=== PATIENT | female | born 1950 | race Caucasian/White ===

== ENCOUNTER → 2024-09-01 09:32 | Outpatient (REF) | payer MEDICARE, BC, SELFPAY | LOC: RAD 09:32 | PROVIDERS: ATTENDING PHYSICIAN Otolaryngology; FAMILY PHYSICIAN Nurse Practitioner | DX: R13.12 Dysphagia, oropharyngeal phase (principal) | CPT/HCPCS: 74221 ==

== ENCOUNTER 2024-09-24 06:10 | Day surgery (SDC) | payer MEDICARE, BC, SELFPAY ==
[2024-09-24 07:25] VITALS: BMI 26.0
[2024-09-24 07:30] VITALS: BP 144/81
[2024-09-24 07:35] VITALS: BMI 26.0
[2024-09-24 09:25] VITALS: BP 116/68
[2024-09-24 09:30] VITALS: BP 133/74
[2024-09-24 09:45] VITALS: BP 140/84
[2024-09-24 09:55] VITALS: BP 154/77
[2024-09-24 10:00] VITALS: BP 158/76
== END 2024-09-24 10:23 | disposition home or self-care (01) ==
LOC: SDS 06:10
PROVIDERS: ATTENDING PHYSICIAN Internal Medicine Gastroenterology
DX: R13.10 Dysphagia, unspecified (principal); K22.2 Esophageal obstruction; K29.70 Gastritis, unspecified, without bleeding; R93.3 Abnormal findings on diagnostic imaging of other parts of digestive tract; K22.89 Other specified disease of esophagus; Q39.4 Esophageal web
CPT/HCPCS: 43249; 43248; 88305; 88342; C1726

== ENCOUNTER 2024-12-23 18:03 | Inpatient (IN) | payer MEDICARE, BC, SELFPAY ==
[2024-12-23] VITALS (7 sets, daily range): BP systolic 128–184; BP diastolic 85–120; BMI 27.7; BMI 26.3
[2024-12-23] MEDS: DILAUDID 1 MG IV ×3 (15:27→23:09)
[2024-12-23 15:47] LABS: Hematocrit 39.6 % (37.0-47.0); Hemoglobin 13.0 g/dL (12.0-16.0); Mean Corp Hgb Conc. 32.8 g/dL (33.0-37.0); Mean Corpuscular Volume 99.5 fL (81.0-99.0); Nucleated Red Blood Cells % 0 %; Platelet Count 201 10^3/uL (130-400); Red Cell Dist. Width 20.2 % (11.5-14.5)
[2024-12-23 16:03] LABS: Blood Urea Nitrogen 13 mg/dl (7-17); Calcium 8.7 mg/dl (8.4-10.2); Carbon Dioxide 22 mmol/L (22-30); Chloride 115 mmol/L (98-107); Estimated Creatinine Clearance 75 ml/min; Glucose 104 mg/dl (70-99); Sodium 137 mmol/L (135-145); eGFR > 60.00
--- NOTE | 2024-12-23 16:08 | ED.GENMED ---
History of Present Illness
<Aung Pierce Jr., PA-C - Last Filed: 12/23/24 16:28>
General
Chief Complaint: Musculo-Skeletal Complaint
Source: patient
Exam Limitations: none
Time Seen by Provider: 12/23/24 15:16
Nursing documentation reviewed up to this point in time: agreed with
History of Present Illness
History of Present Illness:
74-year-old female presenting to the emergency department after mechanical fall hitting her left hip unable to walk since. Think she may have hit the left side of her head but denies any significant discomfort to her head or neck. She is not on
blood thinners. Received 100 mcg of fentanyl and route with some improvement of pain. Denies numbness weakness or additional concerns.
Review of Systems
<Aung Pierce Jr., PA-C - Last Filed: 12/23/24 16:28>
Review of Systems
Allergies reviewed?: Yes
All Other Systems: ROS reviewed and negative except as documented in HPI and ROS
Phy Exam
<LESLY Tai Jr. Last Filed: 12/23/24 16:28>
Physical Exam
Physical Exam:
GENERAL: Alert , in no apparent distress
EYE: pupils equal and reactive
NECK: Supple, no significant adenopathy.
ENT: o/p clr, mmm.
CARDIAC: Regular rate and rhythm .
LUNGS: Clear breath sounds bilaterally, no acute respiratory distress, no wheezes/rales/rhonchi
ABDOMEN: Soft, without focal tenderness, no r/g, no cvat
NEUROLOGICAL: Alert and oriented, no focal neuro deficits
SKIN: Warm and dry, skin intact.
MUSCULOSKELETAL: Shortened left leg discomfort to the left proximal hip region unable to move at the left hip secondary to pain otherwise normal right lower extremity examination and upper extremity examination
PSYCH: Normal and appropriate interaction.
Course
<Aung Pierce Jr., PA-C - Last Filed: 12/23/24 16:28>
Orders/Labs/Results
Orders:
Orders
12/23/24 15:20
CT Cervical Spine W/o Iv Contr Urgent
Comment:
Reason For Exam: fall
CT Head W/o Iv Contrast Urgent
Comment:
Reason For Exam: fall hit head
HYDROmorphone [Dilaudid] 1 mg IV NOW STA
Hip, Left 2-3 Views [CR Hip - LT w/wo Pel 2-3 Vw*] Urgent
Comment:
Reason For Exam: left hip pain after fall
Include a pelvis x-ray?: Yes
12/23/24 15:27
BMP [Basic Metabolic Panel] Urgent
CBC/With Diff [Complete Blood Count/With Diff] Urgent
Abnormal Lab Results
12/23/24
15:27
RBC 3.98 L 10^6/uL
(4.20-5.40)
MCV 99.5 H fL
(81.0-99.0)
MCH 32.7 H pg
(27.0-31.0)
MCHC 32.8 L g/dL
(33.0-37.0)
RDW 20.2 H %
(11.5-14.5)
Abs Immat Gran (auto) 0.1 H 10^3/uL
(0-0.05)
Immature Gran % 0.8 H %
(0-0.5)
Lymphocytes % 15.6 L %
(20.5-51.1)
Chloride 115 H mmol/L
(98-107)
Glucose 104 H mg/dl
(70-99)
12/23/24 15:27
12/23/24 15:27
Vital Signs
Initial and Last Documented VS:
Initial Vital Signs
Pulse Resp
94 20
12/23/24 15:08 12/23/24 15:08
Last Documented Vital Signs
Pulse Resp BP
94 16 152/94
12/23/24 15:16 12/23/24 15:16 12/23/24 15:16
<Jean-Pierre Barker Shanika, DO - Last Filed: 12/23/24 16:33>
Orders/Labs/Results
Orders:
Orders
12/23/24 15:20
CT Cervical Spine W/o Iv Contr Urgent
Comment:
Reason For Exam: fall
CT Head W/o Iv Contrast Urgent
Comment:
Reason For Exam: fall hit head
HYDROmorphone [Dilaudid] 1 mg IV NOW STA
Hip, Left 2-3 Views [CR Hip - LT w/wo Pel 2-3 Vw*] Urgent
Comment:
Reason For Exam: left hip pain after fall
Include a pelvis x-ray?: Yes
12/23/24 15:27
BMP [Basic Metabolic Panel] Urgent
CBC/With Diff [Complete Blood Count/With Diff] Urgent
Abnormal Lab Results
12/23/24
15:27
RBC 3.98 L 10^6/uL
(4.20-5.40)
MCV 99.5 H fL
(81.0-99.0)
MCH 32.7 H pg
(27.0-31.0)
MCHC 32.8 L g/dL
(33.0-37.0)
RDW 20.2 H %
(11.5-14.5)
Abs Immat Gran (auto) 0.1 H 10^3/uL
(0-0.05)
Immature Gran % 0.8 H %
(0-0.5)
Lymphocytes % 15.6 L %
(20.5-51.1)
Chloride 115 H mmol/L
(98-107)
Glucose 104 H mg/dl
(70-99)
12/23/24 15:27
12/23/24 15:27
Vital Signs
Initial and Last Documented VS:
Initial Vital Signs
Pulse Resp
94 20
12/23/24 15:08 12/23/24 15:08
Last Documented Vital Signs
Pulse Resp BP
94 16 152/94
12/23/24 15:16 12/23/24 15:16 12/23/24 15:16
<Aung Pierce Jr., PA-C - Last Filed: 12/23/24 16:28>
MDM/Problems Addressed
MDM/Problems Addressed:
74-year-old female presenting after mechanical fall with concerns of left-sided hip pain. Left leg is shortened and rotated. X-ray confirming femoral neck fracture. CT scan of the head and neck without emergent findings. Case discussed with
orthopedics and will be admitted for further treatment and monitoring.
<Aung Pierce Jr., PA-C - Last Filed: 12/23/24 16:28>
*Pulse Oximetry
Patient hypoxic: no (98)
*Critical Care Note
Total Time (30-74mins, 75-104mins- exclusive of procedures): Not Applicable
ED Attending Note
<Aung Pierce Jr., PA-C - Last Filed: 12/23/24 16:28>
-
Portions of this chart may have been created with voice recognition software.� Occasional wrong word or��sound alike� substitutions may have occurred due to the inherent limitations of voice recognition software.
<Jean-Pierre Voss DO - Last Filed: 12/23/24 16:33>
ED Attending Note
Patient seen and examined by attending physician: Yes
I performed the substantive portion of visit, reviewed & personally made and approve the management plan that is documented in note by myself or LIZETH.: Yes
ED Attending Note:
I evaluated the patient at 4:30 PM. The patient currently appears comfortable. CBC normal, chemistries unremarkable. I personally reviewed images and patient does have a left femoral neck fracture.
Discharge Plan
Departure
Patient Disposition: Admit
Date of Disposition: 12/23/24
Time of Disposition: 16:28
Admit to: Med/Surg
Admit to doctor: Pierre
Presentation/result/management discussed w/ accepting MD/DO: Hospitalist
Patient with high blood pressure during this ER visit?: No
Condition: Good
Covid-19: Not Applicable
Discharge Problem:
Closed fracture of left hip
Prescriptions:
No Action
losartan 25 mg Tablet
25 mg PO DAILY
diazepam 10 mg Tablet
10 mg PO BID
trazodone 100 mg Tablet
100 mg PO HS
atorvastatin 40 mg Tablet
40 mg PO DAILY
venlafaxine 150 mg Capsule,Extended Release 24hr
300 mg PO DAILY
omeprazole 40 mg Capsule,Delayed Release(Dr/Ec)
40 mg PO DAILY
Wellamoon patch
1 unit transdermal HS
Restful Legs Pm
1 tab PO PRN PRN (Reason: restless legs)
Referrals:
Diamond Pearl CRNP [Family Provider, General]
Interventions
Interventions:
*Risk Screen - Suicide Last Done: 12/23/24 15:12
*General Assessment Last Done: 12/23/24 15:12
*Neglect/Abuse Screening Last Done: 12/23/24 15:12
*ED COVID-19 Vaccine History Last Done: 12/23/24 15:12
ED-Musculoskeletal Assessment Last Done: 12/23/24 15:15
Discharge Date and Time
Print Language: COLOMBIAN
--- NOTE | 2024-12-23 16:48 | W.PN.UPDATE ---
Update Note
Progress Note Update
74-year-old female with two-vessel nonobstructive CAD, COPD/mild restrictive lung disease, thyroid nodule, oropharyngeal dysphagia, primary hypertension, dyslipidemia, family history of premature CAD possibly familial hypercholesterolemia, former
tobacco use, H/O skin cancer s/p resection presenting to the hospital today after a fall at home. Patient notes mechanical fall without preceding symptoms such as chest pain, dyspnea, lightheadedness or palpitations. States she believes she hit
the left side of her head but denies any discomfort. Denies anticoagulants. Denies paresthesias, aphasia, weakness. AFVSS through ED course. Labs unremarkable. Head CT without acute findings including ICH or midline shift. CT cervical spine
without contrast showed mild centrilobular emphysema bilaterally though no acute cervical findings. X-ray of the left hip showed acute fracture of the subcapital femoral neck with mild displacement. Was given 1 mg of Dilaudid in the ED.
AO x 4, NAD. Well-nourished. Benign cardiopulmonary and abdomen. LLE with mild external rotation, tenderness to proximal palpation. Neurovascularly intact. No edema, palpable pulses. No focal deficits, no tremor.
#Acute left subcapital femoral fracture with mild displacement. Orthopedics alerted in the ED and planning for OR tomorrow. Continue with as needed analgesia. Nonweightbearing pending the OR. N.p.o. at midnight for OR tomorrow
#Two-vessel CAD. No history of intervention such as PCI or CABG. Noted family history as well, possibly familial hypercholesteremia. Currently on high intensity statin, no aspirin per our records. Would likely need full dose aspirin for DVT
prophylaxis following surgery, may benefit from de-escalation 81 mg thereafter due to ASCVD history.
#Oropharyngeal dysphagia. Etiology unclear, following OP with gastroenterology. Currently on omeprazole 40 mg daily. Will continue PPI while here. Start aspiration precautions.
#Preoperative assessment. Patient is low risk for a low to moderate risk procedure. RCRI roughly 0.9%. No contraindications to surgical intervention from this perspective
Diet -- Low cholesterol, n.p.o. at midnight
DVT prophylaxis -- SCDs today, SQ Lovenox tomorrow after OR
CODE STATUS -- Full
I will be admitting Jena Cervantes to [facility]. She is at high risk for worsening morbidity and mortality due to acute hip fracture requiring intensive monitoring of blood counts and surgical intervention by orthopedics. I have discussed this case
with the ED attending and orthopedist. I reviewed the case with the resident and agree with documentation unless otherwise specified.
--- NOTE | 2024-12-23 17:38 | HPS.HSE ---
Family Physician
-
Family Physician: Diamond Peral
Chief Complaint
-
Left hip trauma following fall
History of Present Illness
74-year-old female with past medical history of hypertension, hyperlipidemia, anxiety, depression, history of alcohol abuse sober for 3 years came to the ED following a fall while she was trying to hug somebody while at an AA meeting. Patient
describes that she was leaning over and then suddenly fell in slow motion and hit her head. She does not remember passing out or feeling any dizziness or weakness and remembers everything that happened during and prior to the fall. She says that
she was feeling a lot of pain following the fall and stated called EMS due to the increased amount of pain. In the ED she was found to have a left femoral neck fracture with mild displacement and is planned for orthopedic surgery in the morning.
She has a history of anxiety and depression for which she takes venlafaxine in the morning and diazepam 10 mg, maximum of twice a day. She says she has not had any alcohol in 3 years and has been sober since then. Lives alone in her apartment
building, but both her daughters close by. She lives on the second floor apartment by herself following her passing away few years ago. She says that she had smoked tobacco for 10 years but stopped when she was 29 years old. Currently has
no other issues except for difficulty with eating. She has been following up with GI who started her on omeprazole 40 mg. She describes that she can eat solid foods like cheeseburgers but has to be very particular about what she eats. Overall she
has been feeling well but was told by orthopedics that she might need bilateral knee replacement which she has hold off on doing. Does not endorse any shortness of breath, chest pain, headaches, difficulty breathing at this time.
Medical History
Past Medical History
Past Medical History: Reports HTN, Hypercholesterolemia and Other (Alcohol use disorder)
Past Surgical History: Reports Cholecystectomy, Gynocological (Hysterectomy, x 4), Orthopedic (Right shoulder replacement) and Other (lumpectomy/skin cancer)
Social History
Tobacco: Former Smoker (Stopped smoking when she was 29)
Alcohol: Former (Sober for 3 years)
Drug: None
Personal:
Living: Alone
Employment: Retired
Family History
Family History: Not pertinent
Allergies / Home Medications
Allergies reflects when Allergies were last updated in [facility].
Home Medications with original date entered in [facility]
Allergy/Medication List:
Allergies
Allergy/AdvReac Type Severity Reaction Status Date / Time
prednisone Allergy Unknown Verified 12/23/24 15:19
Home Medications
diazepam 10 mg tablet 10 mg PO BID 09/24/24
losartan 25 mg tablet 25 mg PO DAILY 09/24/24
trazodone 100 mg tablet 100 mg PO HS 09/24/24
Restful Legs Pm 1 tab PO PRN PRN restless legs 10/13/24
Wellamoon 1 unit transdermal HS 10/13/24
atorvastatin 40 mg tablet 40 mg PO DAILY 10/13/24
omeprazole 40 mg capsule,delayed release 40 mg PO DAILY 10/13/24
venlafaxine 150 mg capsule,extended release 24 hr 300 mg PO DAILY 10/13/24
Review of Systems
-
History Source: Patient
A 12 point ROS was completed and negative except as noted: Yes
Constitutional: Reports No Symptoms
EENT: Reports No Symptoms
Respiratory: Reports No Symptoms
Cardiac: Reports No Symptoms
Abdomen/GI: Reports No Symptoms
: Reports No Symptoms
Musculoskeletal: Reports See HPI
Skin: Reports No Symptoms
Neurological: Reports No Symptoms
Endocrine: Reports No Symptoms
Hematologic/Lymphatic: Reports No Symptoms
Psych: Reports Calm
Physical Exam
Vital Signs
Vital Signs
Temp Pulse Resp BP Pulse Ox
98.2 F 97 18 176/97 95
12/23/24 16:39 12/23/24 17:15 12/23/24 17:15 12/23/24 17:00 12/23/24 17:15
Physical Exam
General: Well Developed, Well Nourished, No Apparent Distress, Comfortable and Conversant
HEENT: NormoCephalic, Anicteric, Moist mucous membranes and Atraumatic
Respiratory: Clear and Non Labored Respirations
Cardiac: S1/S2 and Regular Rhythm
GI: Soft, Non Tender, Non Distended and Normal Bowel Sounds
Musculoskeletal: No Clubbing, No Cyanosis, No Edema and Other (Left lower extremity sensation, pedal pulses intact, motor function reduced due to pain)
Skin: Warm and Dry
Neuro: Awake, Alert, Oriented and AO x 3
Psych: Calm
Laboratory Results
-
12/23/24 15:27
12/23/24 15:27
Data Reviewed
-
Diagnostic Radiology: Report Reviewed by me, Discussed with Physician and Discussed with Patient
CT Scan: Report Reviewed by me, Discussed with Physician and Discussed with Patient
Lab Data: Labs Reviewed by me, Discussed with Physician and Discussed with Patient
Impression/Plan
-
Assessment:
74-year-old female with past medical history of hypertension, hyperlipidemia, anxiety, depression, history of alcohol abuse sober for 3 years came to the ED following a fall while she was trying to hug somebody while at an AA meeting. Patient
describes that she was leaning over and then suddenly fell in slow motion and hit her head. She does not remember passing out or feeling any dizziness or weakness in remembers everything that happened during and prior to the fall. She says that
she was feeling a lot of pain following the fall and stated called EMS due to the increased amount of pain. In the ED she was found to have a left femoral neck fracture with mild displacement and is planned for orthopedic surgery in the morning.
Plan:
# Left femoral neck acute fracture with mild displacement
- Fell on her head as well, however head CT negative for any acute finding
- Seen on hip x-ray, Ortho following, input appreciated
- N.p.o. after midnight, surgery planned for tomorrow
- Pain control with IV Dilaudid as needed
# Hypertension
- Already took her losartan dose this morning, will continue losartan starting tomorrow
# Hyperlipidemia
- Will continue atorvastatin tomorrow, already took a dose today
# Anxiety/depression
- Taking diazepam 10 mg twice daily as needed at home
- Will continue with current dosing
- Continue venlafaxine 300 mg p.o. daily, two 150 mg tablets in the morning
# History of dysphagia
- Able to eat regular foods at home, but very careful about what she eats
- Following GI in outpatient setting and had recent endoscopy, will continue with pantoprazole
- Will continue regular foods with aspiration precautions
- N.p.o. after midnight
Full code
DVT prophylaxis: SCDs
[2024-12-23] MEDS: DILAUDID 0.5 MG IV (20:53)
--- NOTE | 2024-12-23 21:20 | PTCARENOTE ---
pt rec'd via stretcher @ 2119; w/ left hip fx; AOx3; hypertensive f/u w [employer]; bed locked in lowest position; call dee within reach; care ongoing;
[2024-12-23] MEDS: DESYREL 100 MG PO (22:51)
[2024-12-23] MEDS: VALIUM 10 MG PO (22:51)
[2024-12-24] VITALS (12 sets, daily range): BP systolic 110–175; BP diastolic 46–98
[2024-12-24] MEDS: DILAUDID 0.5 MG IV (00:09)
[2024-12-24] MEDS: DILAUDID 1 MG IV ×3 (04:03→09:17)
--- NOTE | 2024-12-24 06:22 | W.PN.UPDATE ---
Update Note
Progress Note Update
Left hip displaced femoral neck fracture for hemiarthroplasty today with Dr Mendiola. NPO, ancef, ABX/TXA irrigation and type & screen ordered. Full orthopedic consult dictataed.
[2024-12-24 06:43] LABS: Hematocrit 36.9 % (37.0-47.0); Hemoglobin 12.2 g/dL (12.0-16.0); Mean Corp Hgb Conc. 33.1 g/dL (33.0-37.0); Mean Corpuscular Volume 101.7 fL (81.0-99.0); Platelet Count 184 10^3/uL (130-400); Red Cell Dist. Width 20.2 % (11.5-14.5)
[2024-12-24 07:08] LABS: ALT (SGPT) 15 U/L (0-35); AST (SGOT) 25 U/L (14-36); Albumin 3.2 g/dl (3.5-5.0); Alkaline Phosphatase 124 U/L (38-126); Blood Urea Nitrogen 12 mg/dl (7-17); Calcium 8.0 mg/dl (8.4-10.2); Carbon Dioxide 28 mmol/L (22-30); Chloride 112 mmol/L (98-107); Estimated Creatinine Clearance 66 ml/min; Glucose 106 mg/dl (70-99); Potassium 3.3 mmol/L (3.5-5.1); Sodium 136 mmol/L (135-145); Total Protein 5.7 g/dl (6.3-8.2); eGFR > 60.00
--- NOTE | 2024-12-24 08:03 | W.PN.HOSP.TC ---
Today's Communication/Plan
-
N.p.o. until OR with Dr. Mendiola today
Continue managing pain levels
Assessment / Plan
Assessment / Plan
Assessment:
74-year-old female with past medical history of hypertension, hyperlipidemia, anxiety, depression, history of alcohol abuse sober for 3 years came to the ED following a fall while she was trying to hug somebody while at an AA meeting. Patient
describes that she was leaning over and then suddenly fell in slow motion and hit her head. She does not remember passing out or feeling any dizziness or weakness in remembers everything that happened during and prior to the fall. She says that
she was feeling a lot of pain following the fall and stated called EMS due to the increased amount of pain. In the ED she was found to have a left femoral neck fracture with mild displacement and is planned for orthopedic surgery later today.
Plan:
# Left femoral neck acute fracture with mild displacement
- Fell on her head as well, however head CT negative for any acute finding
- Seen on hip x-ray
- Ortho consulted, input appreciated
- N.p.o., hemiarthroplasty of left hip with Dr. Mendiola today
- Pain control with IV Dilaudid as needed
# Hypertension
- Continue home dose of losartan
# Hyperlipidemia
- Continue atorvastatin
# Anxiety/depression
- Taking diazepam 10 mg twice daily as needed at home
- Will continue with current dosing
- Continue venlafaxine 300 mg p.o. daily, two 150 mg tablets in the morning
# History of dysphagia
- Able to eat regular foods at home, but very careful about what she eats
- Following GI in outpatient setting and had recent endoscopy, will continue with pantoprazole
- Will continue regular foods with aspiration precautions
- Has been n.p.o. after midnight
Full code
DVT prophylaxis: SCDs, will switch to Lovenox following surgery
Anticipated Discharge: 24 - 48 hours
Subjective/Interval History
-
Date of Service: December 24, 2024
Patient seen this morning, had just received her pain meds but was still in some pain, waiting on the pain meds to kick in. Was a bit frustrated after being told that she might need to go to [facility] for rehab following her
surgery. Reassured her that it was just one step at the road to recovery following surgery. Does not report any shortness of breath, chest pain, headaches at this time.
Objective Data
-
Labs:
Laboratory Results
12/24/24
06:11
WBC 6.9
Hgb 12.2
Hct 36.9 L
Plt Count 184
Sodium 136
Potassium 3.3 L
Chloride 112 H
Carbon Dioxide 28
BUN 12
Creatinine 0.6
Glucose 106 H
Calcium 8.0 L
Total Bilirubin 0.7
AST 25
ALT 15
Alkaline Phosphatase 124
Vital Signs:
Vital Signs
Temp Pulse Resp BP Pulse Ox
98.5 F 102 18 155/97 95
12/23/24 21:15 12/24/24 00:04 12/23/24 21:15 12/24/24 00:04 12/23/24 21:15
Review of Systems
-
History Source: Patient
Constitutional: Reports No Symptoms
EENT: Reports No Symptoms Reported
Respiratory: Reports No Symptoms
Cardiac: Reports No Symptoms
Abdomen/GI: Reports No Symptoms
Genitourinary: Reports No Symptoms
Musculoskeletal: Reports Joint Pain (Left hip pain)
Skin: Reports No Symptoms
Neuro: Reports No Symptoms
Endocrine: Reports No Symptoms
Hematologic / Lymphatic: Reports No Symptoms
Allergy / Immunology: Reports No Symptoms
Psych: Reports Anxious
Physical Exam
-
General: Well Developed, Well Nourished, Pain and Conversant
HEENT: Normocephalic, Atraumatic and Moist Mucous Membranes
Respiratory: Clear to Auscultation and Non Labored Respirations; Negative Wheezes or Crackles
Cardiac: Regular Rhythm and S1/S2; Negative Murmur, Rub or Gallop
GI: Soft, Nontender, Nondistended and Normal Bowel Sounds
Genito-urinary: No Costovertebral Tender
Musculoskeletal: No Clubbing, No Cyanosis, No Edema and Other (LLE with mild external rotation, tenderness to proximal palpation)
Skin: Warm and Dry
Neuro: Awake, Alert, Oriented and AO x 3
Psych: Agitated
Data Reviewed
-
Labs: Labs Reviewed by me, Discussed with Physician and Discussed with Patient
[2024-12-24] MEDS: COZAAR 25 MG PO (08:16)
[2024-12-24] MEDS: PROTONIX 40 MG PO (08:16)
[2024-12-24] MEDS: EFFEXOR XR PO (08:21)
[2024-12-24] MEDS: LIPITOR PO (08:21)
[2024-12-24] MEDS: VALIUM 10 MG PO (08:24)
[2024-12-24] MEDS: FLUSH (NSS) 2 FLUSH IV (09:17)
--- NOTE | 2024-12-24 09:54 | CM ---
CM following re: discharge planning.
Reviewed pt's chart, met with pt.
Pt is a 74 year old female, admitted with primary dx of Left hip displaced femoral neck fracture. OR for hemiarthroplasty today.
Pt reports she lives alone in an apartment, 2 steps to enter, has 4 supportive daughters. 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 Pt stated she is aware of surgery today and pt stated she will need to go t0o a
SNF. Pt preferred following SNFs: [facility], [facility], [facility], [facility].
A referral to above SNFs made. CM will fax updated clinical tomorrow to preferred SNF with PT/OT evaluations.
PCP: Diamond dougherty
Pharmacy: [facility].
D/c plan: preferred SNF.
CM will follow to assist pt with discharge to a preferred SNF.
[2024-12-24] MEDS: KCL ELIXIR 40 MEQ PO (10:01)
[2024-12-24] MEDS: ROXICODONE 5 MG PO (16:12)
[2024-12-24] MEDS: ASPIRIN 325 MG PO (17:44)
[2024-12-24] MEDS: COLACE 100 MG PO (20:06)
[2024-12-24] MEDS: BACTROBAN 2% OINTMENT 1 APPLIC NASAL (20:06)
[2024-12-24] MEDS: SENOKOT 17.2 MG PO (20:06)
[2024-12-24] MEDS: ROXICODONE 10 MG PO (20:06)
[2024-12-24] MEDS: DESYREL 150 MG PO (22:17)
[2024-12-24] MEDS: ANCEF 5 IV (22:17)
[2024-12-24] MEDS: MELATONIN 5 MG PO (22:18)
[2024-12-25] MEDS: VALIUM 10 MG PO ×2 (00:56→08:31)
[2024-12-25] MEDS: TYLENOL 650 MG PO ×3 (00:56→17:38)
[2024-12-25 03:20] VITALS: BP 129/72
[2024-12-25] MEDS: ANCEF 5 IV (06:11)
[2024-12-25 06:34] LABS: Hematocrit 31.3 % (37.0-47.0); Hemoglobin 10.2 g/dL (12.0-16.0); Mean Corp Hgb Conc. 32.6 g/dL (33.0-37.0); Mean Corpuscular Volume 102.6 fL (81.0-99.0); Nucleated Red Blood Cells % 0 %; Platelet Count 163 10^3/uL (130-400); Red Cell Dist. Width 20.6 % (11.5-14.5)
--- NOTE | 2024-12-25 06:35 | PTCARENOTE ---
Tried to reinforce DVT prevention. However, pt continues to remove venous foot pumps.
--- NOTE | 2024-12-25 07:19 | W.PN.ORTHO ---
Today's Communication / Plan
-
Evaluate and discharge planning
Assessment
.
Distal Motor Intact: Yes
Dressing:
Clean, dry and intact.
Assessment:
Doing well postop. Postop xray as expected.
Plan
.
Surgery / Date: 12/24/24 L hip hemiarthroplasty
DVT Prophylaxis: Aspirin
Activity:
Out of bed.
PT/OT
Discharge Plan: Rehab
Discharge Information:
Patient to receive PT.
Case Management consult for inpatient rehab
Subjective
.
.:
Patient resting comfortably.
Slightly confused about date.
Pain much improved
Vital Signs and Labs
.
Vital Signs and Labs:
Lab Results
12/25/24 05:24
Temp Pulse Resp BP Pulse Ox
97.6 F 108 18 129/72 94
12/25/24 03:20 12/25/24 03:20 12/25/24 03:20 12/25/24 03:20 12/25/24 03:20
Physical Exam
-
Pulm: nonlabored
CV: regular
LLE: Dressing CDI. Calf soft. NVI distally
[2024-12-25 07:20] VITALS: BP 158/66
[2024-12-25 07:43] LABS: ALT (SGPT) 12 U/L (0-35); AST (SGOT) 29 U/L (14-36); Albumin 2.7 g/dl (3.5-5.0); Alkaline Phosphatase 102 U/L (38-126); Blood Urea Nitrogen 10 mg/dl (7-17); Calcium 7.6 mg/dl (8.4-10.2); Carbon Dioxide 28 mmol/L (22-30); Chloride 111 mmol/L (98-107); Estimated Creatinine Clearance 66 ml/min; Glucose 108 mg/dl (70-99); Potassium 3.9 mmol/L (3.5-5.1); Sodium 135 mmol/L (135-145); Total Protein 4.8 g/dl (6.3-8.2); eGFR > 60.00
--- NOTE | 2024-12-25 07:43 | W.PN.HOSP.TC ---
Addendum entered and electronically signed by No Parish MD, Resident 12/26/24 06:53:
CDI: Postop confusion only
Addendum entered and electronically signed by No Parish MD, Resident 12/25/24 14:39:
CDI: Multifactorial due to low level mechanical fall and possible age-related osteoporosis
Original Note:
Today's Communication/Plan
-
PT evaluation
Continue pain medications as needed
Monitor for continued improvement in mental status
Resume home meds
Assessment / Plan
Assessment / Plan
Assessment:
74-year-old female with past medical history of hypertension, hyperlipidemia, anxiety, depression, history of alcohol abuse sober for 3 years came to the ED following a fall while she was trying to hug somebody while at an AA meeting. Patient
describes that she was leaning over and then suddenly fell in slow motion and hit her head. She does not remember passing out or feeling any dizziness or weakness in remembers everything that happened during and prior to the fall. She says that
she was feeling a lot of pain following the fall and stated called EMS due to the increased amount of pain. In the ED she was found to have a left femoral neck fracture with mild displacement and underwent left hip hemiarthroplasty. Currently
postop day 1.
Plan:
# Left femoral neck acute fracture with mild displacement
- Fell on her head as well, however head CT negative for any acute finding
- Seen on hip x-ray
- Ortho consulted, input appreciated
- Postop day 1 following left hip hemiarthroplasty
- Pain control with oxycodone as needed
- Postop x-ray was as expected, patient to receive physical therapy today, most likely discharge to SNF for rehab
# Postop confusion
- Mildly confused following operation and taking oxycodone
- Recovering mental status, will continue to monitor for any worsening
# Hypertension
- Continue home dose of losartan
# Hyperlipidemia
- Continue atorvastatin
# Anxiety/depression
- Taking diazepam 10 mg twice daily as needed at home
- Will continue with current dosing
- Continue venlafaxine 300 mg p.o. daily, two 150 mg tablets in the morning
# History of dysphagia
- Able to eat regular foods at home, but very careful about what she eats
- Following GI in outpatient setting and had recent endoscopy, will continue with pantoprazole
- Will continue regular foods with aspiration precautions
Full code
DVT prophylaxis: Lovenox tonight
Anticipated Discharge: Within 24 hours
Subjective/Interval History
-
Date of Service: December 25, 2024
Patient seen this morning was a little bit confused following taking oxycodone. Nurse said that she has been taking off her SCDs for confusion. Patient says that she has not really been eating since the surgery, but says that she is usually not
very big eater but will try to eat today. Does not report any nausea, vomiting, does not have any shortness of breath or difficulty breathing at this time. Has not had a bowel movement since the surgery yet. Has the pain is a lot better than
before however still having some pain.
Objective Data
-
Labs:
Laboratory Results
12/25/24
05:24
WBC 8.7
Hgb 10.2 L
Hct 31.3 L
Plt Count 163
Sodium Pending
Potassium Pending
Chloride Pending
Carbon Dioxide Pending
BUN Pending
Creatinine Pending
Glucose Pending
Calcium Pending
Total Bilirubin Pending
AST Pending
ALT Pending
Alkaline Phosphatase Pending
Vital Signs:
Vital Signs
Temp Pulse Resp BP Pulse Ox
97.6 F 108 18 129/72 94
12/25/24 03:20 12/25/24 03:20 12/25/24 03:20 12/25/24 03:20 09/19/25 03:20
I&O
12/24/24 12/25/24 12/26/24
06:59 06:59 06:59
Intake Total 200 / 200
Output Total 150 / 150
Balance 50 / 50
Review of Systems
-
History Source: Patient
Constitutional: Reports No Symptoms
EENT: Reports No Symptoms Reported
Respiratory: Reports No Symptoms
Cardiac: Reports No Symptoms
Abdomen/GI: Reports Bloated
Genitourinary: Reports No Symptoms
Musculoskeletal: Reports Joint Pain (Left hip pain, tenderness around area of incision)
Skin: Reports No Symptoms
Neuro: Reports No Symptoms
Endocrine: Reports No Symptoms
Hematologic / Lymphatic: Reports No Symptoms
Allergy / Immunology: Reports No Symptoms
Psych: Reports Anxious and Other (Mild confusion)
Physical Exam
-
General: Well Developed, Well Nourished, Pain and Conversant
HEENT: Normocephalic, Atraumatic and Moist Mucous Membranes
Respiratory: Clear to Auscultation and Non Labored Respirations; Negative Wheezes or Crackles
Cardiac: Regular Rhythm and S1/S2; Negative Murmur, Rub or Gallop
GI: Soft, Nontender, Normal Bowel Sounds and Distended (Mildly distended)
Genito-urinary: No Costovertebral Tender
Musculoskeletal: No Clubbing, No Cyanosis, No Edema and Other (Incisions noted around left hip, area tender to the touch. Incision site nonerythematous and nondraining. Pedal pulses palpated equally both lower extremities)
Skin: Warm and Dry
Neuro: Awake, Alert, Oriented and AO x 3
Psych: Confused (Mild confusion) and Agitated
Data Reviewed
-
Diagnostic Radiology: Report Reviewed by me, Discussed with Physician and Discussed with Patient
Labs: Labs Reviewed by me, Discussed with Physician, Discussed with Nurse and Discussed with Patient
[2024-12-25] MEDS: EFFEXOR XR 300 MG PO (08:28)
[2024-12-25] MEDS: ASPIRIN 325 MG PO (08:28)
[2024-12-25] MEDS: PROTONIX 40 MG PO (08:28)
[2024-12-25] MEDS: BACTROBAN 2% OINTMENT 1 APPLIC NASAL ×2 (08:28→21:00)
[2024-12-25] MEDS: LIPITOR 40 MG PO (08:28)
[2024-12-25] MEDS: COLACE 100 MG PO ×2 (08:28→21:25)
[2024-12-25] MEDS: ROXICODONE 5 MG PO ×4 (08:33→21:24)
[2024-12-25] MEDS: SENOKOT PO (08:36)
[2024-12-25] MEDS: COZAAR 25 MG PO (08:40)
--- NOTE | 2024-12-25 08:56 | W.PN.ORTHO ---
Today's Communication / Plan
-
Appreciate the primary team, continue treatment
Dispo likely SNF, appreciate CM
Continue WBAT B/L LEs on walker
PT/OT, THPs x 6 weeks
ASA + Lovenox for DVT ppx, or per primary
Dressing to remain 7-10 days
Pain control, ice to the hip as needed
[place] out 2 weeks (SNF or office)
If oksana removed at SNF outpatient Ortho follow-up in 4 weeks
Will follow
Assessment
.
Distal Motor Intact: Yes
Dressing:
Clean, dry and intact. Primaseal intact left hip
Assessment:
POD#1 Left hip Bienvenido
Overall doing/feeling well
Calf soft, nontender
Plan
.
Surgery / Date: Left hip Bienvenido/Dec 31 ([facility])
DVT Prophylaxis: Aspirin and Lovenox (per primary)
Activity:
Out of bed. WBAT LLE on walker
PT/OT, THPs x 6 weeks
Discharge Plan: SNF (Appreciate CM) and Other
Subjective
.
.:
Patient resting comfortably. No significant pain left hip
Vital Signs and Labs
.
Vital Signs and Labs:
Lab Results
12/25/24 05:24
12/25/24 05:24
Temp Pulse Resp BP Pulse Ox
97.6 F 97 18 158/66 94
12/25/24 03:20 12/25/24 08:40 12/25/24 03:20 12/25/24 08:40 12/25/24 03:20
[2024-12-25 11:04] VITALS: BP 154/71; PULSE 102; O2SAT 93
[2024-12-25 11:15] VITALS: BP 110/80
--- NOTE | 2024-12-25 13:39 | CM ---
CM following re: discharge planning.
Reviewed pt's chart, met with pt, spoke to daughter Es and met with daughter Anya.
Pt is POD#1 Left hip Bienvenido, Overall doing/feeling well, continue supportive care. Per MD pt most klikely will be ready for discharge tomorrow. Both pt and her daughter are aware, expressed their agreement. IMM reviewed, placed on chart, pt has a
copy.
Both pt and her daughter were informed that [facility] and [facility] offered a bed and they offered a private room. After discussion with pt and her family, they decided [facility]
CM spoke to [facility] cardiac rehabilitation program director and she confirmed that pt is accepted for admission tomorrow. Weekend CM to call [facility] and ask for nursing toilet and laundry soap supervisor regarding pt's discharge.
UC to arrange ambulance transport when confirmed that pt is discharged. PMNC completed and left with UC.
[facility] nursing report: [phone]
Discharge instructions fax: [phone]
D/C plan: [facility] tomorrow Saturday12/26/24
--- NOTE | 2024-12-25 13:51 | PN.CDI ---
CDI
- -
CDI:
Physician Documentation Request
Admit Date: 12/23/24 18:03
Dear Doctor Марина,
Patient admitted with acute left subcapital femoral fracture s/p left hip hemiarthroplasty.
12/25 PN, '....came to the ED following a fall while she was trying to hug somebody while at an AA meeting.'
Please provide in your note the likely etiology/etiologies of the documented left femoral fracture:
Multifactorial due to low level mechanical fall and age-related osteoporosis
Low level mechanical fall only
Other
Use of terms such as suspected, likely, concern for, or probable (associated with a specific diagnosis that is being evaluated, monitored, or treated as if it exists) are acceptable and can be coded in the inpatient setting, when documented at the
time of discharge.
Thank you,
Shyann VALDEZ,RN,CCDS
CDI Specialist
Available via [place] text
Please use your independent medical judgment in providing your response.
--- NOTE | 2024-12-25 14:40 | PN.CDI ---
CDI
- -
CDI:
Physician Documentation Request
Admit Date: 12/23/24 18:03
Dear Doctor Марина,
Patient admitted with acute left subcapital femoral fracture s/p left hip hemiarthroplasty.
12/25 PN, 'Postop confusion- Mildly confused following operation and taking oxycodone- Recovering mental status...'
Based on the above, please clarify in the note the most likely etiology of the postop confusion :
Toxic metabolic encephalopathy
Post op confusion only
Other
Use of terms such as suspected, likely, concern for, or probable (associated with a specific diagnosis that is being evaluated, monitored, or treated as if it exists) are acceptable and can be coded in the inpatient setting, when documented at the
time of discharge.
Thank you,
Shyann VALDEZ,RN,CCDS
CDI Specialist
Available via [place] text
Please use your independent medical judgment in providing your response.
[2024-12-25 15:15] VITALS: BP 113/64
[2024-12-25] MEDS: ZOFRAN 4 MG IV (17:43)
[2024-12-25] MEDS: DESYREL 150 MG PO (21:24)
[2024-12-25] MEDS: MELATONIN 5 MG PO (21:24)
[2024-12-25 23:41] VITALS: BP 124/83
[2024-12-25] MEDS: TYLENOL PO (23:57)
[2024-12-26] MEDS: ROXICODONE 5 MG PO ×2 (05:31→16:27)
[2024-12-26] MEDS: TYLENOL 650 MG PO ×2 (05:31→11:59)
[2024-12-26 06:36] LABS: Hematocrit 29.6 % (37.0-47.0); Hemoglobin 9.3 g/dL (12.0-16.0); Mean Corp Hgb Conc. 31.4 g/dL (33.0-37.0); Mean Corpuscular Volume 103.1 fL (81.0-99.0); Platelet Count 174 10^3/uL (130-400); Red Cell Dist. Width 20.6 % (11.5-14.5)
[2024-12-26 06:58] LABS: Blood Urea Nitrogen 15 mg/dl (7-17); Calcium 8.1 mg/dl (8.4-10.2); Carbon Dioxide 30 mmol/L (22-30); Chloride 108 mmol/L (98-107); Estimated Creatinine Clearance 66 ml/min; Glucose 121 mg/dl (70-99); Potassium 3.8 mmol/L (3.5-5.1); Sodium 134 mmol/L (135-145); eGFR > 60.00
[2024-12-26 07:40] VITALS: BP 132/71
[2024-12-26] MEDS: COZAAR 25 MG PO (08:01)
[2024-12-26] MEDS: PROTONIX 40 MG PO (08:03)
[2024-12-26] MEDS: EFFEXOR XR 300 MG PO (08:03)
[2024-12-26] MEDS: COLACE 100 MG PO (08:04)
[2024-12-26] MEDS: LIPITOR 40 MG PO (08:04)
[2024-12-26] MEDS: ASPIRIN 325 MG PO (08:04)
--- NOTE | 2024-12-26 09:45 | W.PN.ORTHO ---
Today's Communication / Plan
-
74-year-old female postoperative day 2 left hip hemiarthroplasty with Dr. Penn
Appreciate the primary team, continue treatment
Dispo likely SNF, appreciate CM
Continue WBAT B/L LEs on walker
PT/OT, THPs (anterior approach) x 6 weeks
ASA + Lovenox for DVT ppx, or per primary
Dressing to remain 7-10 days
Pain control, ice to the hip as needed
[place] out 2 weeks (SNF or office); DC info UTD
If oksana removed at [facility] outpatient Ortho follow-up in 4 weeks
Orthopedic surgery will follow peripherally at this time; please reengage if further questions concerns
Assessment
.
Distal Motor Intact: Yes
Dressing:
Clean, dry and intact.
Plan
.
Surgery / Date: Left hip Bienvenido/Dec 31 ([facility])
Activity:
Out of bed.
PT/OT
Subjective
.
.:
Patient resting comfortably.
Vital Signs and Labs
.
Vital Signs and Labs:
Lab Results
12/26/24 06:12
12/26/24 06:12
Temp Pulse Resp BP Pulse Ox
98.9 F 122 18 132/71 98
12/26/24 07:40 12/26/24 08:01 12/26/24 07:40 12/26/24 08:01 12/26/24 07:40
--- NOTE | 2024-12-26 09:49 | W.PN.HOSP.TC ---
Today's Communication/Plan
-
Discharge to SNF today
Assessment / Plan
Assessment / Plan
Assessment:
74-year-old female with past medical history of hypertension, hyperlipidemia, anxiety, depression, history of alcohol abuse sober for 3 years came to the ED following a fall while she was trying to hug somebody while at an AA meeting. Patient
describes that she was leaning over and then suddenly fell in slow motion and hit her head. She does not remember passing out or feeling any dizziness or weakness in remembers everything that happened during and prior to the fall. She says that
she was feeling a lot of pain following the fall and stated called EMS due to the increased amount of pain. In the ED she was found to have a left femoral neck fracture with mild displacement and underwent left hip hemiarthroplasty. Currently
postop day 2.
Plan:
# Left femoral neck acute fracture with mild displacement
- Fell on her head as well, however head CT negative for any acute finding
- Seen on hip x-ray
- Ortho consulted, input appreciated
- Postop day 2 following left hip hemiarthroplasty
- Pain control with oxycodone and Tylenol as needed
- As per discussion with patient and her family, patient to go to rehab today at SNF
# Postop confusion only
- Mildly confused following operation and taking oxycodone 10 mg
- No further instances of confusion, resolved
# Hypertension
- Continue home dose of losartan
# Hyperlipidemia
- Continue atorvastatin
# Anxiety/depression
- Taking diazepam 10 mg twice daily as needed at home
- Will continue with current dosing
- Continue venlafaxine 300 mg p.o. daily, two 150 mg tablets in the morning
# History of dysphagia
- Able to eat regular foods at home, but very careful about what she eats
- Following GI in outpatient setting and had recent endoscopy, will continue with pantoprazole
- Will continue regular foods with aspiration precautions
Full code
DVT prophylaxis: Aspirin and SCDs
Anticipated Discharge: Today
Subjective/Interval History
-
Date of Service: December 26, 2024
Patient is feeling much better following surgery, reports that her pain levels are much improved. Does not report any further change in mental status that she had yesterday. Discussed with her family yesterday and is willing to go to SNF later
today for rehabilitation. She does say that she is feeling a little bit anxious about going to a new place.
Objective Data
-
Labs:
Laboratory Results
12/26/24
06:12
WBC 10.3
Hgb 9.3 L
Hct 29.6 L
Plt Count 174
Sodium 134 L
Potassium 3.8
Chloride 108 H
Carbon Dioxide 30
BUN 15
Creatinine 0.6
Glucose 121 H
Calcium 8.1 L
Vital Signs:
Vital Signs
Temp Pulse Resp BP Pulse Ox
98.9 F 122 18 132/71 98
12/26/24 07:40 12/26/24 08:01 12/26/24 07:40 12/26/24 08:01 12/26/24 07:40
I&O
12/25/24 12/26/24 12/27/24
06:59 06:59 06:59
Intake Total 200 / 200 357 / 357
Output Total 150 / 150 200 / 200
Balance 50 / 50 157 / 157
Review of Systems
-
History Source: Patient
Constitutional: Reports No Symptoms
EENT: Reports No Symptoms Reported
Respiratory: Reports No Symptoms
Cardiac: Reports No Symptoms
Abdomen/GI: Reports Bloated
Genitourinary: Reports No Symptoms
Musculoskeletal: Reports Joint Pain (Left hip pain, tenderness around area of incision)
Skin: Reports No Symptoms
Neuro: Reports No Symptoms
Endocrine: Reports No Symptoms
Hematologic / Lymphatic: Reports No Symptoms
Allergy / Immunology: Reports No Symptoms
Psych: Reports Anxious
Physical Exam
-
General: Well Developed, Well Nourished, Pain (Improved from before) and Conversant
HEENT: Normocephalic, Atraumatic and Moist Mucous Membranes
Respiratory: Clear to Auscultation and Non Labored Respirations; Negative Wheezes or Crackles
Cardiac: Regular Rhythm, S1/S2 and Tachycardic; Negative Murmur, Rub or Gallop
GI: Soft, Nontender, Normal Bowel Sounds and Distended (Mildly distended)
Genito-urinary: No Costovertebral Tender
Musculoskeletal: No Clubbing, No Cyanosis, No Edema and Other (Incisions noted around left hip, area tender to the touch. Incision site nonerythematous and nondraining. Pedal pulses palpated equally both lower extremities)
Skin: Warm and Dry
Neuro: Awake, Alert, Oriented and AO x 3
Psych: Anxious
Data Reviewed
-
Labs: Labs Reviewed by me, Discussed with Physician, Discussed with Nurse and Discussed with Patient
[2024-12-26] MEDS: MAALOX 30 ML PO (11:59)
--- NOTE | 2024-12-26 12:14 | CM ---
CM called and spoke to [facility] global supply chain director and she confirmed that pt is accepted for admission today after 5pm.
UC to arrange ambulance transport when confirmed that pt is discharged. PMNC completed and left with UC. CM will review IMM with patient and family for completion.
[facility] nursing report: [phone]
Discharge instructions fax: [phone]
D/C plan: [facility] Saturday12/26/24
--- NOTE | 2024-12-26 12:59 | W.DCSUMMARY ---
Documented by User: No Parish MD, Resident 12/26/24 13:19
Discharge Summary
Discharge Data
Date of Admission: 12/23/24
Date of Discharge: 12/26/24
-
Pending Results: No
Hospital Course
Discharging Physician : Dr. Armando Mendez, Dr. No Parish
Disposition : SNF ([facility])
Primary care physician : Diamond Pearl
Principal Discharge diagnosis :
Acute left subcapital femoral fracture with mild displacement with left hip hemiarthroplasty
Chronic Discharge diagnosis :
Two-vessel CAD
Hypertension
Hyperlipidemia
Anxiety/depression
History of Dysphagia
Hospital Course :
74-year-old female with past medical history of hypertension, hyperlipidemia, anxiety, depression, history of alcohol abuse sober for 3 years came to the ED following a fall while she was trying to hug somebody while at an AA meeting. Patient
describes that she was leaning over and then suddenly fell in slow motion and hit her head. She does not remember passing out or feeling any dizziness or weakness in remembers everything that happened during and prior to the fall. She says that
she was feeling a lot of pain following the fall and stated called EMS due to the increased amount of pain. In the ED she was found to have a left femoral neck fracture with mild displacement and underwent left hip hemiarthroplasty the following
day.
The morning following the procedure, she was a bit altered from taking 10mg Oxycodone but otherwise tolerated the procedure and post procedure well. Patient was started on DVT prophylaxis with high dose aspirin as well as SCDs due to her history of
two-vessel CAD. Patient's home medicines for hypertension and hyperlipidemia and anxiety/depression were continued. She was evaluated by PT and was recommended going to SNF for rehab. Patient was amenable to decision and decided on going to [place]
[facility]. Patient cleared for discharge to [facility] today with instructions to follow up with Orthopedics as discussed. Patient will need to follow up with GI for her dysphagia history. She was also instructed to get BMP and CBC in 3-5 days following
discharge.
Important imaging findings :
Hip X-Ray: Acute fracture of the subcapital left femoral neck with mild displacement.
The bony pelvis is intact. Mild bilateral hip joint space narrowing with small marginal osteophytes. Surgical clips and suture material project over the central pelvis. The soft tissues are unremarkable.
Hip X-Ray post surgery:
Prosthesis appears intact and well-positioned. Postoperative edema and gas are seen in the adjacent soft tissues. Left lateral skin oksana are present. The bony pelvis is intact.
Procedure findings : None.
Discharge Plan
-
Patient Disposition: Prison/SNF
Discharge Diagnosis/Procedures: Acute left subcapital femoral fracture with mild displacement with left hip hemiarthroplasty
Two-vessel CAD
Hypertension
Hyperlipidemia
Anxiety/depression
History of Dysphagia
Condition: Fair
Diet: Regular
Activity: As tolerated and With Walker
Driving Restrictions: Not until seen by your Dr
Bathing Restrictions: OK to Shower
Blood Work: CBC and BMP in 3-5 days from discharge
Other Services: PT
Wound Care: Maintain dressing at least 7-10 days from surgery- oksana out 2 weeks from DOS either at SNF or in office.
Referrals:
Diamond Pearl CRNP [Family Provider, General] - in less than 1 week
Referral Note: Please follow up with your PCP within 1 week
Lorraine Perez PA-C [Specified Professional Personl, Orthopedics] - 01/07/25 1:15 pm
Referral Note: if still at [facility] facility by this date, please cancel and reschedule for 4 weeks from date of surgery
Additional Discharge Medication Instructions: Please follow up with Orthopedics as scheduled (01/07/2025 1:15 pm)
Please follow up with your PCP within 1 week
Please follow up with your Entrepreneur for your dysphagia
Please take famotidine 20mg as needed for heartburn along with your omeprazole
Continue taking aspirin 325 daily
Continue Tylenol and Oxycodone as needed for pain
Prescriptions:
New
acetaminophen 325 mg Tablet
650 mg PO Q6 7 Days Qty: 56 0RF
aspirin 325 mg Tablet
325 mg PO DAILY Qty: 30 0RF
oxycodone 5 mg Tablet
5 mg PO Q4HPRN PRN (Reason: moderate-severe pain) 5 Days Qty: 30 0RF
famotidine 20 mg tablet
20 mg PO BID PRN (Reason: Heartburn) Qty: 30 0RF
Continued
losartan 25 mg Tablet
25 mg PO DAILY
diazepam 10 mg Tablet
10 mg PO BID
trazodone 100 mg Tablet
200 mg PO HS
atorvastatin 40 mg Tablet
40 mg PO DAILY
venlafaxine 150 mg Capsule,Extended Release 24hr
300 mg PO DAILY
omeprazole 40 mg Capsule,Delayed Release(Dr/Ec)
40 mg PO DAILY
Wellamoon patch
1 unit transdermal HS
Restful Legs Pm
1 tab PO PRN PRN (Reason: restless legs)
Discharge Orders:
Discharge Patient (As Directed); Ordered 12/26/24
Ordered By: No Parish
Discharge Date and Time
Print Language: UKRAINIAN

Documented by User: Armando Mendez DO 12/26/24 13:33
Discharge Summary
Discharge Data
Date of Admission: 12/23/24
Date of Discharge: 12/26/24
Total time spent discharging patient (in min): 33
Discharge Plan
-
Patient Disposition: Prison/SNF
Discharge Diagnosis/Procedures: Acute left subcapital femoral fracture with mild displacement with left hip hemiarthroplasty
Two-vessel CAD
Hypertension
Hyperlipidemia
Anxiety/depression
History of Dysphagia
Condition: Fair
Diet: Regular
Activity: As tolerated and With Walker
Driving Restrictions: Not until seen by your Dr
Bathing Restrictions: OK to Shower
Blood Work: CBC and BMP in 3-5 days from discharge
Other Services: PT
Wound Care: Maintain dressing at least 7-10 days from surgery- oksana out 2 weeks from DOS either at SNF or in office.
Referrals:
Diamond Pearl CRNP [Family Provider, General] - in less than 1 week
Referral Note: Please follow up with your PCP within 1 week
Lorraine Perez PA-C [Specified Professional Personl, Orthopedics] - 01/07/25 1:15 pm
Referral Note: if still at [facility] facility by this date, please cancel and reschedule for 4 weeks from date of surgery
Additional Discharge Medication Instructions: Please follow up with Orthopedics as scheduled (01/07/2025 1:15 pm)
Please follow up with your PCP within 1 week
Please follow up with your Entrepreneur for your dysphagia
Please take famotidine 20mg as needed for heartburn along with your omeprazole
Continue taking aspirin 325 daily
Continue Tylenol and Oxycodone as needed for pain
Prescriptions:
New
acetaminophen 325 mg Tablet
650 mg PO Q6 7 Days Qty: 56 0RF
aspirin 325 mg Tablet
325 mg PO DAILY Qty: 30 0RF
oxycodone 5 mg Tablet
5 mg PO Q4HPRN PRN (Reason: moderate-severe pain) 5 Days Qty: 30 0RF
famotidine 20 mg tablet
20 mg PO BID PRN (Reason: Heartburn) Qty: 30 0RF
Continued
losartan 25 mg Tablet
25 mg PO DAILY
diazepam 10 mg Tablet
10 mg PO BID
trazodone 100 mg Tablet
200 mg PO HS
atorvastatin 40 mg Tablet
40 mg PO DAILY
venlafaxine 150 mg Capsule,Extended Release 24hr
300 mg PO DAILY
omeprazole 40 mg Capsule,Delayed Release(Dr/Ec)
40 mg PO DAILY
Wellamoon patch
1 unit transdermal HS
Restful Legs Pm
1 tab PO PRN PRN (Reason: restless legs)
Discharge Orders:
Discharge Patient (As Directed); Ordered 12/26/24
Ordered By: No Parish
Discharge Date and Time
Print Language: UKRAINIAN
[2024-12-26] MEDS: ZOFRAN 4 MG IV (13:23)
[2024-12-26 13:35] VITALS: BP 104/59
== END 2024-12-26 16:50 | DRG 522 ==
LOC: 2 SOUTH 18:03
PROVIDERS: Orthopaedic Surgery; Physician Assistant; ADMITTING PHYSICIAN Internal Medicine; CONSULT PHYSICIAN Orthopaedic Surgery Hand Surgery; EMERGENCY PHYSICIAN Emergency Medicine; FAMILY PHYSICIAN Nurse Practitioner
PROC: 0SRS0J9 Replacement of Left Hip Joint, Femoral Surface with Synthetic Substitute, Cemented, Open Approach (ICD-10-PCS; 2024-12-24)
DX: M80.052A Age-related osteoporosis with current pathological fracture, left femur, initial encounter for fracture (principal); D62 Acute posthemorrhagic anemia; W18.30XA Fall on same level, unspecified, initial encounter; I25.10 Atherosclerotic heart disease of native coronary artery without angina pectoris; I10 Essential (primary) hypertension; E78.00 Pure hypercholesterolemia, unspecified; R13.12 Dysphagia, oropharyngeal phase; E87.6 Hypokalemia; K21.9 Gastro-esophageal reflux disease without esophagitis; M17.0 Bilateral primary osteoarthritis of knee; G25.81 Restless legs syndrome; F32.A Depression, unspecified; F10.10 Alcohol abuse, uncomplicated; F41.9 Anxiety disorder, unspecified; Z87.891 Personal history of nicotine dependence; Z79.899 Other long term (current) drug therapy
CPT/HCPCS: 70450; 72125; 73502; 80048; 80053; 85025; 85027; 86850; 86900; 86901; 96374; 97163; 97167; 97530; 97535; 99285; C1713; C1776

== ENCOUNTER → 2024-12-28 10:13 | Outpatient (REF) | payer OTHER, MEDICARE, BC, SELFPAY ==
[2024-12-28 10:36] LABS: Hematocrit 28.3 % (37.0-47.0); Hemoglobin 8.8 g/dL (12.0-16.0); Mean Corp Hgb Conc. 31.1 g/dL (33.0-37.0); Mean Corpuscular Volume 104.0 fL (81.0-99.0); Nucleated Red Blood Cells % 0 %; Platelet Count 226 10^3/uL (130-400); Red Cell Dist. Width 20.8 % (11.5-14.5)
[2024-12-28 11:30] LABS: Blood Urea Nitrogen 18 mg/dl (7-17); Calcium 8.1 mg/dl (8.4-10.2); Carbon Dioxide 30 mmol/L (22-30); Chloride 112 mmol/L (98-107); Glucose 96 mg/dl (70-99); Potassium 3.4 mmol/L (3.5-5.1); Sodium 137 mmol/L (135-145); eGFR > 60.00
== END ==
LOC: OLABP 10:13
PROVIDERS: ATTENDING PHYSICIAN Family Medicine
DX: S72.012A Unspecified intracapsular fracture of left femur, initial encounter for closed fracture (principal); I25.10 Atherosclerotic heart disease of native coronary artery without angina pectoris; I10 Essential (primary) hypertension; E78.5 Hyperlipidemia, unspecified; F40.11 Social phobia, generalized
CPT/HCPCS: 36415; 80048; 85025

== ENCOUNTER → 2024-12-29 11:30 | Outpatient (REF) | payer OTHER, MEDICARE, BC, SELFPAY ==
[2024-12-29 12:23] LABS: Hematocrit 27.6 % (37.0-47.0); Hemoglobin 8.7 g/dL (12.0-16.0); Mean Corp Hgb Conc. 31.5 g/dL (33.0-37.0); Mean Corpuscular Volume 102.6 fL (81.0-99.0); Nucleated Red Blood Cells % 0 %; Platelet Count 260 10^3/uL (130-400); Red Cell Dist. Width 20.3 % (11.5-14.5)
[2024-12-29 12:28] LABS: Blood Urea Nitrogen 19 mg/dl (7-17); Calcium 8.3 mg/dl (8.4-10.2); Carbon Dioxide 30 mmol/L (22-30); Chloride 111 mmol/L (98-107); Glucose 93 mg/dl (70-99); Potassium 4.0 mmol/L (3.5-5.1); Sodium 138 mmol/L (135-145); eGFR > 60.00
== END ==
LOC: OLABP 11:30
PROVIDERS: ATTENDING PHYSICIAN Family Medicine
DX: S72.012A Unspecified intracapsular fracture of left femur, initial encounter for closed fracture (principal); I25.10 Atherosclerotic heart disease of native coronary artery without angina pectoris; I10 Essential (primary) hypertension; E78.5 Hyperlipidemia, unspecified; F40.11 Social phobia, generalized
CPT/HCPCS: 36415; 80048; 85025

== ENCOUNTER → 2025-01-01 10:30 | Outpatient (REF) | payer OTHER, MEDICARE, BC, SELFPAY ==
[2025-01-01 10:57] LABS: Hematocrit 28.2 % (37.0-47.0); Hemoglobin 9.0 g/dL (12.0-16.0); Mean Corp Hgb Conc. 31.9 g/dL (33.0-37.0); Mean Corpuscular Volume 103.3 fL (81.0-99.0); Nucleated Red Blood Cells % 0.3 %; Platelet Count 361 10^3/uL (130-400); Red Cell Dist. Width 20.3 % (11.5-14.5)
== END ==
LOC: OLABP 10:30
PROVIDERS: ATTENDING PHYSICIAN Family Medicine
DX: S72.012A Unspecified intracapsular fracture of left femur, initial encounter for closed fracture (principal); I25.10 Atherosclerotic heart disease of native coronary artery without angina pectoris; I10 Essential (primary) hypertension; E78.5 Hyperlipidemia, unspecified; F40.11 Social phobia, generalized
CPT/HCPCS: 36415; 85025

== ENCOUNTER → 2025-01-08 11:11 | Outpatient (REF) | payer OTHER, MEDICARE, BC, SELFPAY ==
[2025-01-08 11:39] LABS: Hematocrit 30.3 % (37.0-47.0); Hemoglobin 9.4 g/dL (12.0-16.0); Mean Corp Hgb Conc. 31.0 g/dL (33.0-37.0); Mean Corpuscular Volume 103.8 fL (81.0-99.0); Nucleated Red Blood Cells % 0 %; Platelet Count 450 10^3/uL (130-400); Red Cell Dist. Width 18.8 % (11.5-14.5)
== END ==
LOC: OLABP 11:11
PROVIDERS: ATTENDING PHYSICIAN Family Medicine
DX: I25.10 Atherosclerotic heart disease of native coronary artery without angina pectoris (principal); I10 Essential (primary) hypertension; S72.012A Unspecified intracapsular fracture of left femur, initial encounter for closed fracture; E78.5 Hyperlipidemia, unspecified; F40.11 Social phobia, generalized
CPT/HCPCS: 36415; 85025

== ENCOUNTER 2025-02-17 17:25 | Observation (INO) | payer MEDICARE, BC, SELFPAY ==
[2025-02-17] VITALS (14 sets, daily range): BP systolic 123–163; BP diastolic 52–89; PULSE 80–93; O2SAT 97; BMI 24.6
--- NOTE | 2025-02-17 10:32 | ED.GENMED ---
History of Present Illness
<Hiwot Vincent PA-C - Last Filed: 02/18/25 00:47>
General
Chief Complaint: Fall
Source: patient
Exam Limitations: none
Time Seen by Provider: 02/17/25 10:11
Nursing documentation reviewed up to this point in time: agreed with
History of Present Illness
History of Present Illness:
Patient is a 74-year-old female with history hypertension, hyperlipidemia who presents to the emergency department today via EMS after waking up on the ground. Patient states when she woke up this morning she was face first on the ground next to
her bed without any recollection of falling. She currently is complaining of mild neck pain and mid back discomfort. She denies any current chest pain, shortness of breath. She denies any headache, visual changes, vomiting, numbness/tingling or
weakness in extremities.
Patient is unsure if she may have fallen out of bed or passed out.
She also expresses a few weeks of GI symptoms including anorexia and intermittent vomiting. She reports little p.o. intake. No fevers or abdominal pain. No dysuria.
She reports that over the past few days she has felt that she is unable to ambulate independently due to weakness and pain. She states that she was 'scooting around the floor on her bottom'. She has been struggling with somewhat chronic pain in
her left hip and left knee s/p left hip replacement on 12/[address] Penn. She sustained multiple falls over the past few weeks at home. She lives alone.
Patient is not on any oral anticoagulation.
Review of Systems
<Hiwot Vincent PA-C - Last Filed: 02/18/25 00:47>
Review of Systems
Allergies reviewed?: Yes
All Other Systems: ROS reviewed and negative except as documented in HPI and ROS
Phy Exam
<Hiwot Vincent PA-C - Last Filed: 02/18/25 00:47>
Physical Exam
Physical Exam:
Vitals: Hypertensive, otherwise vital signs stable. Afebrile
General: Patient arrives in C-spine collar.
Skin: Warm and dry, no rashes or lesions
Head: Normocephalic, atraumatic
Eyes: Sclera nonicteric. Pupils equal round reactive to light bilaterally. EOMs intact. No nystagmus.
Throat: Protecting airway
Neck: Arrives in C-spine collar however no reproducible cervical spine tenderness.
Cardiac: Regular rate and rhythm, no murmurs.
Pulm: Normal respiratory effort, no wheezes, rales, rhonchi heard on exam
.
Abdomen: No abdominal tenderness.
Extremities: No evidence of cyanosis or edema
Neuro: AAOx3. CN II-XII intact. No focal neurologic deficits.
Psychiatric: Normal affect.
Course
<Hiwot Vincent PA-C - Last Filed: 02/18/25 00:47>
Orders/Labs/Results
Orders:
Orders
02/17/25 Lunch
Low Lactose
At Your Request: Full Participation
02/17/25 10:29
Electrocardiogram (*1) Urgent
Reason for Study: Syncope
Cervical Spine wo Contrast CT [CT Cervical Spine W/o Iv Contr] Urgent
Comment:
Reason For Exam: unwitnessed fall
EKG- Treatment ONCE
0.9% Sodium Chloride 1000 ml [Nss] 1,000 ml IV BOLUS
Acetaminophen [Tylenol] 650 mg PO NOW STA
Hip, Left 2-3 Views [CR Hip - LT w/wo Pel 2-3 Vw*] Urgent
Comment:
Reason For Exam: fall
Include a pelvis x-ray?: Yes
Knee, Left 4 or More Views [CR Knee - Left 4 Or More View*] Urgent
Comment:
Reason For Exam: fall
Thoracic Spine 3 Views CR [CR Thoracic Spine 3 Views] Urgent
Comment:
Reason For Exam: fall
02/17/25 10:30
CT Head W/o Iv Contrast Urgent
Comment:
Reason For Exam: unwitnessed fall
02/17/25 10:36
CPK [Creatine Phosphokinase] Urgent
Complete Blood Count/With Diff Urgent
Comprehensive Metabolic Panel Urgent
TSH Urgent
Comment: ADD ON
Troponin I Urgent
Vitamin B12 Urgent
Comment: ADD ON
02/17/25 12:09
Urinalysis Reflex To Culture Urgent
Date Specimen was Collected: 02/17/25
Time Specimen was Collected: 10:32
Urine Microscopic Reflex Cult Urgent
Urine Culture Urgent
SHOSHANA Source: U
Specimen Description:
Date Specimen was Collected: 02/17/25
Time Specimen was Collected: 10:32
02/17/25 13:57
Troponin I Urgent
02/17/25 14:52
CefTRIAXone [Rocephin] 1,000 mg IV NOW STA
02/17/25 15:43
Add On- LAB Routine
Tests Added?: TSH, vitamin B12
02/17/25 16:03
Admit/Transfer Patient As Directed
Co-Sign Provider:
Level of Care: Observation services
Assign to:: Telemetry
Physician / Group: Leilani Jay
Diagnosis: UTI, dehydration
Reason for Telemetry: Syncope
Date to Stop Telemetry: 02/19/25
Time to Stop Telemetry: 11:00
PRN Pain Medication Management As Directed
May give lesser potent ordered pain med per pt: Yes
preference::
Protocol:: Medication orders for pain may be administered in a
manner that supports deferring to patient preference
when the pt is:
- Requesting an ordered lesser potent pain medication.
Least to most potent pain medications are defined
as: acetaminophen < NSAID < tramadol < opioids
(morphine, oxycodone, hydromorphone).
- Requesting a lesser dose of the same medication IF
ORDERED.
- Requesting a less intrusive route of administration
if both routes are prescribed by the provider (PO <
IV).
02/17/25 16:04
Code Status As Directed
Resuscitation Status: Full Code
02/17/25 17:00
Acetaminophen [Tylenol] 650 mg PO Q4HPRN PRN
02/17/25 18:10
0.9% Sodium Chloride 1000 ml [Nss] 1,000 ml IV 80 mls/hr
Famotidine [Pepcid] 20 mg PO BIDPRN PRN Heartburn
02/17/25 18:10
Activity As Directed
Activity Level: As Tolerated
Vital Signs As Directed
Frequency: Per unit guidelines
Physical Therapy Consult [Pt Eval And Treat] Routine
Activity Level: As Tolerated
DX Deep Vein Thrombosis Video Routine
02/17/25 19:00
Enoxaparin Sodium [Lovenox] 40 mg SC QPM
02/17/25 20:00
Diazepam [Valium] 10 mg PO BID
Losartan [Cozaar] 25 mg PO BID
Venlafaxine Extended Release [Effexor Xr] 150 mg PO BID
02/17/25 20:12
Troponin I Q8H
02/17/25 20:58
Norovirus by PCR Routine
SHOSHANA Source: Feces/Stool
Specimen Description:
Date Specimen was Collected: 02/17/25
Time Specimen was Collected: 20:54
STOOL [C difficile Antigen & Toxins] Routine
SHOSHANA Source: Feces/Stool
Specimen Description:
Date Specimen was Collected: 02/17/25
Time Specimen was Collected: 20:54
Stool Culture Routine
SHOSHANA Source: Feces/Stool
Specimen Description:
Date Specimen was Collected: 02/17/25
Time Specimen was Collected: 20:54
02/17/25 22:00
Trazodone [Desyrel] 200 mg PO HS
02/18/25 06:00
Basic Metabolic Panel IN AM
Complete Blood Count/No Diff IN AM
Magnesium IN AM
02/18/25 08:00
Atorvastatin [Lipitor] 40 mg PO DAILY
Pantoprazole [Protonix] 40 mg PO DAILY
02/18/25 16:00
CefTRIAXone [Rocephin] 1,000 mg IV Q24H
02/19/25 11:00
DC Protocol for Telemetry ONCE
Abnormal Lab Results
02/17/25 02/17/25 02/17/25
10:36 12:09 13:57
MCV 100.2 H fL
(81.0-99.0)
MCHC 30.4 L g/dL
(33.0-37.0)
RDW 16.5 H %
(11.5-14.5)
Absolute Neuts (auto) 8.6 H 10^3/uL
(1.4-6.5)
Absolute Lymphs (auto) 1.1 L 10^3/uL
(1.2-3.4)
Absolute Monos (auto) 0.8 H 10^3/uL
(0.1-0.6)
Neutrophils % 81.8 H %
(42.2-75.2)
Lymphocytes % 10.3 L %
(20.5-51.1)
Glucose 112 H mg/dl
(70-99)
Troponin I 0.036 H* ng/ml
Vitamin B12 234 L pg/ml
(239-931)
Ur Occult Blood Reflex 1+ A
(Negative)
Urine Nitrite (Reflex) Positive A
(Negative)
Leukocyte Esterase Rfl 2+ A
(Negative)
Urine WBC (Reflex) 21-25 A /HPF
(0-5)
Urine Bacteria (Reflex) Many A
(Negative)
Urine Albumin (Reflex) 2+ A
(Neg - Trace)
02/17/25 10:36
02/17/25 10:36
Vital Signs
Initial and Last Documented VS:
Initial Vital Signs
Temp Pulse Resp BP Pulse Ox
98.3 F 90 15 156/71 98
02/17/25 10:12 02/17/25 10:12 02/17/25 10:12 02/17/25 10:12 02/17/25 10:12
Last Documented Vital Signs
Temp Pulse Resp BP Pulse Ox
97.8 F 82 15 123/52 96
02/17/25 23:00 02/17/25 23:00 02/17/25 23:00 02/17/25 23:00 02/17/25 23:00
<Jean-Pierre Voss, DO - Last Filed: 02/17/25 15:25>
Orders/Labs/Results
Orders:
Orders
02/17/25 Lunch
Low Lactose
At Your Request: Full Participation
02/17/25 10:29
Electrocardiogram (*1) Urgent
Reason for Study: Syncope
Cervical Spine wo Contrast CT [CT Cervical Spine W/o Iv Contr] Urgent
Comment:
Reason For Exam: unwitnessed fall
EKG- Treatment ONCE
0.9% Sodium Chloride 1000 ml [Nss] 1,000 ml IV BOLUS
Acetaminophen [Tylenol] 650 mg PO NOW STA
Hip, Left 2-3 Views [CR Hip - LT w/wo Pel 2-3 Vw*] Urgent
Comment:
Reason For Exam: fall
Include a pelvis x-ray?: Yes
Knee, Left 4 or More Views [CR Knee - Left 4 Or More View*] Urgent
Comment:
Reason For Exam: fall
Thoracic Spine 3 Views CR [CR Thoracic Spine 3 Views] Urgent
Comment:
Reason For Exam: fall
02/17/25 10:30
CT Head W/o Iv Contrast Urgent
Comment:
Reason For Exam: unwitnessed fall
02/17/25 10:36
CPK [Creatine Phosphokinase] Urgent
Complete Blood Count/With Diff Urgent
Comprehensive Metabolic Panel Urgent
TSH Urgent
Comment: ADD ON
Troponin I Urgent
Vitamin B12 Urgent
Comment: ADD ON
02/17/25 12:09
Urinalysis Reflex To Culture Urgent
Date Specimen was Collected: 02/17/25
Time Specimen was Collected: 10:32
Urine Microscopic Reflex Cult Urgent
Urine Culture Urgent
SHOSHANA Source: U
Specimen Description:
Date Specimen was Collected: 02/17/25
Time Specimen was Collected: 10:32
02/17/25 13:57
Troponin I Urgent
02/17/25 14:52
CefTRIAXone [Rocephin] 1,000 mg IV NOW STA
02/17/25 15:43
Add On- LAB Routine
Tests Added?: TSH, vitamin B12
02/17/25 16:03
Admit/Transfer Patient As Directed
Co-Sign Provider:
Level of Care: Observation services
Assign to:: Telemetry
Physician / Group: Leilani Jay
Diagnosis: UTI, dehydration
Reason for Telemetry: Syncope
Date to Stop Telemetry: 02/19/25
Time to Stop Telemetry: 11:00
PRN Pain Medication Management As Directed
May give lesser potent ordered pain med per pt: Yes
preference::
Protocol:: Medication orders for pain may be administered in a
manner that supports deferring to patient preference
when the pt is:
- Requesting an ordered lesser potent pain medication.
Least to most potent pain medications are defined
as: acetaminophen < NSAID < tramadol < opioids
(morphine, oxycodone, hydromorphone).
- Requesting a lesser dose of the same medication IF
ORDERED.
- Requesting a less intrusive route of administration
if both routes are prescribed by the provider (PO <
IV).
02/17/25 16:04
Code Status As Directed
Resuscitation Status: Full Code
02/17/25 17:00
Acetaminophen [Tylenol] 650 mg PO Q4HPRN PRN
02/17/25 18:10
0.9% Sodium Chloride 1000 ml [Nss] 1,000 ml IV 80 mls/hr
Famotidine [Pepcid] 20 mg PO BIDPRN PRN Heartburn
02/17/25 18:10
Activity As Directed
Activity Level: As Tolerated
Vital Signs As Directed
Frequency: Per unit guidelines
Physical Therapy Consult [Pt Eval And Treat] Routine
Activity Level: As Tolerated
DX Deep Vein Thrombosis Video Routine
02/17/25 19:00
Enoxaparin Sodium [Lovenox] 40 mg SC QPM
02/17/25 20:00
Diazepam [Valium] 10 mg PO BID
Losartan [Cozaar] 25 mg PO BID
Venlafaxine Extended Release [Effexor Xr] 150 mg PO BID
02/17/25 20:12
Troponin I Q8H
02/17/25 20:58
Norovirus by PCR Routine
SHOSHANA Source: Feces/Stool
Specimen Description:
Date Specimen was Collected: 02/17/25
Time Specimen was Collected: 20:54
STOOL [C difficile Antigen & Toxins] Routine
SHOSHANA Source: Feces/Stool
Specimen Description:
Date Specimen was Collected: 02/17/25
Time Specimen was Collected: 20:54
Stool Culture Routine
SHOSHANA Source: Feces/Stool
Specimen Description:
Date Specimen was Collected: 02/17/25
Time Specimen was Collected: 20:54
02/17/25 22:00
Trazodone [Desyrel] 200 mg PO HS
02/18/25 06:00
Basic Metabolic Panel IN AM
Complete Blood Count/No Diff IN AM
Magnesium IN AM
02/18/25 08:00
Atorvastatin [Lipitor] 40 mg PO DAILY
Pantoprazole [Protonix] 40 mg PO DAILY
02/18/25 16:00
CefTRIAXone [Rocephin] 1,000 mg IV Q24H
02/19/25 11:00
DC Protocol for Telemetry ONCE
Abnormal Lab Results
02/17/25 02/17/25 02/17/25
10:36 12:09 13:57
MCV 100.2 H fL
(81.0-99.0)
MCHC 30.4 L g/dL
(33.0-37.0)
RDW 16.5 H %
(11.5-14.5)
Absolute Neuts (auto) 8.6 H 10^3/uL
(1.4-6.5)
Absolute Lymphs (auto) 1.1 L 10^3/uL
(1.2-3.4)
Absolute Monos (auto) 0.8 H 10^3/uL
(0.1-0.6)
Neutrophils % 81.8 H %
(42.2-75.2)
Lymphocytes % 10.3 L %
(20.5-51.1)
Glucose 112 H mg/dl
(70-99)
Troponin I 0.036 H* ng/ml
Vitamin B12 234 L pg/ml
(239-931)
Ur Occult Blood Reflex 1+ A
(Negative)
Urine Nitrite (Reflex) Positive A
(Negative)
Leukocyte Esterase Rfl 2+ A
(Negative)
Urine WBC (Reflex) 21-25 A /HPF
(0-5)
Urine Bacteria (Reflex) Many A
(Negative)
Urine Albumin (Reflex) 2+ A
(Neg - Trace)
02/17/25 10:36
02/17/25 10:36
Vital Signs
Initial and Last Documented VS:
Initial Vital Signs
Temp Pulse Resp BP Pulse Ox
98.3 F 90 15 156/71 98
02/17/25 10:12 02/17/25 10:12 02/17/25 10:12 02/17/25 10:12 02/17/25 10:12
Last Documented Vital Signs
Temp Pulse Resp BP Pulse Ox
97.8 F 82 15 123/52 96
02/17/25 23:00 02/17/25 23:00 02/17/25 23:00 02/17/25 23:00 02/17/25 23:00
<Hiwot Vincent PA-C - Last Filed: 02/18/25 00:47>
MDM/Problems Addressed
Differential Diagnosis Includes:
Not limited to: acute dehydration, cardiac arrhythmia, viral illness, UTI, syncope, mechanical fall, etc
MDM/Problems Addressed:
74 year old female presenting following mechanical fall from bed vs syncope. Apparently happened twice over the past few days. Reports increasing weakness and poor PO intake. Vitals and physical exam as above. Patient is A&O x 3 without focal
deficits. She arrives in a cervical spine collar although has no clearly reproducible tenderness of cervical spine. Mild reproducible tenderness is mid thoracic spine, left inguinal region and left knee. No extremity deformity. Distal pulses intact.
Differential as above. It in unclear what happened this morning regarding syncopal event vs unwitnessed fall from bed. Will check labs, cardiac enzyme, UA. Will obtain CT and xray imaging to r/o traumatic injuries. Will give IVF and tylenol.
Update: Imaging without acute traumatic injuries. Basic labs without acute findings. UA appears infected. Troponin is mildly elevated to 0.036 - likely non cardiac demand ischemia from possible dehydration.
Ultimately - given uncertain nature of events this morning associated w/ significant weakness and minimal troponin elevation, feel patient should be admitted overnight for continued cardiac monitoring/ evaluation. Weakness may be secondary to
dehydration from recent GI losses or UTI. Will cover with Rocephin for UTI. Patient accepted to hospitalist service in stable condition.
Chronic conditions affecting care:
HTN
Acute Exacerbation and/or Progression of Chronic Illness:
Acutely hypertensive
<Hiwot Vincent PA-C - Last Filed: 02/18/25 00:47>
*Radiology
Radiology exam reviewed: radiology read reviewed
*Pulse Oximetry
SaO2: 98
Oxygen Mode of Delivery: Room air
Patient hypoxic: no
*EKG
Interpreted by ED Provider?: Yes
EKG Intrepretation Date: 02/17/25
Interpretation: abnormal
Comparison EKG: changes noted
Heart Rate: 81
Rate: normal
Rhythm: sinus
[place]: normal axis
Interval: normal QT interval
QRS Pattern: normal QRS
Ischemia: non-specific ST changes
*Manager Stone Interpretation
Rate: normal
Interpretation: normal
Heart Rate: 80
Rhythm: sinus
*Critical Care Note
Total Time (30-74mins, 75-104mins- exclusive of procedures): Not Applicable
<Hiwot Vincent PA-C - Last Filed: 02/18/25 00:47>
Patient Management
Discussion with other providers: Hospitalist
ED Attending Note
<Hiwot Vincent PA-C - Last Filed: 02/18/25 00:47>
-
Portions of this chart may have been created with voice recognition software.� Occasional wrong word or��sound alike� substitutions may have occurred due to the inherent limitations of voice recognition software.
<DO Adriana Ludwig Last Filed: 02/17/25 15:25>
ED Attending Note
Patient seen and examined by attending physician: Yes
I performed the substantive portion of visit, reviewed & personally made and approve the management plan that is documented in note by myself or LIZETH.: Yes
ED Attending Note:
I evaluated patient at bedside, she appears somewhat weak and debilitated and somewhat of a limited historian. Troponin is rising although she has not had any chest pain but does have 2 episodes where she woke up on the ground unexpectedly. She
does have an increased number of white cells in the urine. As the patient's recurrent syncopal events are unclear, recommend patient stay in the hospital for further management.
Discharge Plan
Departure
Patient Disposition: Admit
Date of Disposition: 02/17/25
Time of Disposition: 15:25
Presentation/result/management discussed w/ accepting MD/DO: Hospitalist
Discharge Problem:
Weakness, Acute UTI, Elevated troponin
Interventions
Interventions:
*Risk Screen - Suicide Last Done: 02/17/25 10:12
*General Assessment Last Done: 02/17/25 10:12
*Neglect/Abuse Screening Last Done: 02/17/25 10:12
*Nursing Disposition Last Done: 02/17/25 18:20
ED-Musculoskeletal Assessment Last Done: 02/17/25 10:26
ED- Neurological Assessment Last Done: 02/17/25 10:26
ED-Skin Assessment Last Done: 02/17/25 10:26
Discharge Date and Time
Discharge Date/Time: 02/17/25 18:21
[2025-02-17] MEDS: TYLENOL 650 MG PO (10:39)
[2025-02-17] MEDS: NSS 1000 IV ×2 (10:39→18:31)
[2025-02-17 10:52] LABS: Hematocrit 43.1 % (37.0-47.0); Hemoglobin 13.1 g/dL (12.0-16.0); Mean Corp Hgb Conc. 30.4 g/dL (33.0-37.0); Mean Corpuscular Volume 100.2 fL (81.0-99.0); Nucleated Red Blood Cells % 0 %; Platelet Count 333 10^3/uL (130-400); Red Cell Dist. Width 16.5 % (11.5-14.5)
[2025-02-17 11:05] LABS: ALT (SGPT) 13 U/L (0-35); AST (SGOT) 20 U/L (14-36); Albumin 3.5 g/dl (3.5-5.0); Alkaline Phosphatase 89 U/L (38-126); Blood Urea Nitrogen 15 mg/dl (7-17); Calcium 9.3 mg/dl (8.4-10.2); Carbon Dioxide 30 mmol/L (22-30); Chloride 107 mmol/L (98-107); Estimated Creatinine Clearance 57 ml/min; Glucose 112 mg/dl (70-99); Potassium 4.3 mmol/L (3.5-5.1); Sodium 137 mmol/L (135-145); Total Protein 6.4 g/dl (6.3-8.2); eGFR > 60.00
[2025-02-17 11:14] LABS: Troponin I 0.030 ng/ml
[2025-02-17 12:19] LABS: Urine Character Clear (Clear)
[2025-02-17 12:34] LABS: Urine White Cell 21-25 /HPF (0-5)
[2025-02-17 12:36] LABS: Urine Red Blood Cell 0-2 /HPF (0-2)
[2025-02-17 14:39] LABS: Troponin I 0.036 ng/ml
[2025-02-17] MEDS: ROCEPHIN 1000 MG IV (15:26)
--- NOTE | 2025-02-17 15:36 | HPS.HSE ---
Addendum entered and electronically signed by Leilani Jay MD 02/17/25 22:55:
Vitamin B12 level
will order repletion with IM for now given report of feeling off balance- patient will need oral repletion at discharge
Original Note:
Family Physician
-
Family Physician: NOT KNOW UNKNOWN - PT DOES
Chief Complaint
-
status post fall, woke up on ground
History of Present Illness
Ms. Jena Cervantes is a 74 woman with hx prior alcohol abuse now sober, essential HTN, HLD, anxiety/depression, GERD status post recent left hip replacement 12/[address] Penn, presents to the ER after she woke up on the ground unsure how she got
there.
Patient is a poor historian. She states that since her hip surgery she has felt weaker at home. She reports falling 3 days ago, unable to get up and was scooting around on her bottom. She then says she was walking around yesterday and went to see
her family physician. She has been having loose stools/diarrhea and lower adominal cramping after any oral intake. She has been drinking water. No dizziness or lightheadedness. She has also had increased urinary frequency.
No measured fevers. No chest pain or shortness of breath. No LE swelling. No rash.
Medical History
Past Medical History
Past Medical History: Reports HTN, Hypercholesterolemia and Other (former alcohol use and smoker )
Past Surgical History: Reports Cholecystectomy, Gynocological (Hysterectomy, x 4), Orthopedic (Right shoulder replacement) and Other (lumpectomy/skin cancer)
Social History
Tobacco: Former Smoker (Stopped smoking when she was 29)
Alcohol: Former (Sober for 3 years)
Drug: None
Personal:
Living: Alone
Employment: Retired
Family History
Family History: Not pertinent
Allergies / Home Medications
Allergies reflects when Allergies were last updated in [facility].
Home Medications with original date entered in [facility]
Allergy/Medication List:
Allergies
Allergy/AdvReac Type Severity Reaction Status Date / Time
pollen extracts Allergy Itching Verified 02/17/25 10:11
causes
congestion
prednisone Allergy anxiety Verified 02/17/25 10:11
Home Medications
diazepam 10 mg tablet 10 mg PO BID ANXIETY 09/24/24
trazodone 100 mg tablet 200 mg PO HS Mental Health/Anxiety 09/24/24
atorvastatin 40 mg tablet 40 mg PO DAILY High Cholesterol 10/13/24
omeprazole 40 mg capsule,delayed release 40 mg PO DAILY GERD 10/13/24
venlafaxine 150 mg capsule,extended release 24 hr 150 mg PO BID Mental Health/Anxiety 10/13/24
famotidine 20 mg tablet 20 mg PO BIDPRN PRN Heartburn 02/17/25
losartan 25 mg tablet 25 mg PO BID Blood Pressure 02/17/25
Review of Systems
-
History Source: Patient
A 12 point ROS was completed and negative except as noted: Yes
Physical Exam
Vital Signs
Vital Signs
Temp Pulse Resp BP Pulse Ox
98 F 93 15 157/84 98
02/17/25 12:00 02/17/25 12:00 02/17/25 12:00 02/17/25 11:58 02/17/25 10:32
Physical Exam
General: No Apparent Distress and Conversant
HEENT: PERRLA
Respiratory: Clear; No Wheezes
Cardiac: S1/S2 and Regular Rhythm
GI: Soft, Non Tender and Non Distended
Musculoskeletal: No Edema
Skin: Warm and Dry; No Rash
Neuro: AO x 3
Psych: Calm
Laboratory Results
-
02/17/25 10:36
02/17/25 10:36
Laboratory Results
Total Bilirubin 0.7 mg/dl (0.2-1.3) 02/17/25 10:36
AST 20 U/L (14-36) 02/17/25 10:36
ALT 13 U/L (0-35) 02/17/25 10:36
Alkaline Phosphatase 89 U/L (38-126) 02/17/25 10:36
Troponin I 0.036 ng/ml H* 02/17/25 13:57
Data Reviewed
-
Diagnostic Radiology: Report Reviewed by me
Lab Data: Labs Reviewed by me
Impression/Plan
-
Ms. Jena Cervantes is a 74 woman with hx essential HTN, HLD, anxiety/depression, GERD status post recent left hip replacement 12/[address] Penn, presents to the ER after she woke up on the ground unsure how she got there. She reports recent
increased urinary frequency, UA with inflammation. She also reports frequent diarrhea/abdominal cramping post PO intake.
Triage VS: T 36.8C, P 90, RR 15, BP 156/71, SpO2 98%
LABS: WBC 10.5, Hg 13.1, PLT 333, Na 137, K+ 4.3, Cl 107, CO2 30, BUN 15, Cr 0.7, Glucose 112, liver enzymes WNL, Trop 0.030--> 0.036
UA with 21-[address]
IMPRESSION:
No acute intracranial abnormalities.
Findings again seen compatible with diffuse cortical atrophy with nonspecific white matter changes as described above.
CERVICAL SPINE CT
IMPRESSION:
Degenerative changes.
No findings to suggest recent cervical spine fracture.
HIP X-RAY
FINDINGS and IMPRESSION:
Left hip arthroplasty is seen in anatomic position, without dislocation.
There is no recent cortical fracture.
Degenerative changes are again noted.
KNEE X-RAY
FINDINGS and IMPRESSION:
Bones: There is no recent cortical fracture or dislocation. Osseous degenerative changes are noted.
Soft tissue: Some femorotibial soft tissue calcifications are seen at least in part could represent some chondrocalcinosis. There is no finding to suggest suprapatellar effusion.
THORACIC SPINE X-RAY
FINDINGS and IMPRESSION:
Osseous alignment of the thoracic spine appears intact.
There is no finding to suggest thoracic vertebral compression fracture or displacement of the paravertebral lines.
Osseous degenerative changes are noted.
Pre-Syncope versus Fall
Ambulatory Dysfunction/Weakness
UTI
Diarrhea
-history unclear what happened this morning, patient may have fallen out of bed while sleeping versus had syncope. She reports poor PO intake, abdominal cramping and diarrhea which may be causing dehydration contributing to weakness. She also
reports urinary frequency and UA shows inflammation.
-orthostats in ER negative
-admit to telemetry
-trend Troponin
-IVF 1L overnight
-check stool studies - C. Diff, culture, norovirus
-IV Ceftriaxone, follow up urine culture
-patient worked with PT in the ER - recommended
Mild troponin Elevation, suspect non-ischemic myocardial injury secondary to dehydration
-trend Troponin
Recent left hip replacement 12/25
Anxiety/Depression
-[employer] Diazepam BID (patient takes standing at home), Trazodone, Venlafaxine
GERD
-[employer] PPI, pepcid PRN
Essential HTN
-hypertensive in ER, continue [employer] Losartan
HLD
-[employer]EL[employer] Statin
DVT PPx Lovenox subQ
FULL CODE
[2025-02-17 17:02] LABS: TSH 2.45 uIU/ml (0.47-4.68)
[2025-02-17 17:21] LABS: Vitamin B12 234 pg/ml (239-931)
[2025-02-17] MEDS: LOVENOX 40 MG SC (20:27)
[2025-02-17] MEDS: COZAAR 25 MG PO (20:28)
[2025-02-17] MEDS: EFFEXOR XR 150 MG PO (20:28)
[2025-02-17] MEDS: VALIUM 10 MG PO (20:28)
[2025-02-17 20:57] LABS: Troponin I 0.034 ng/ml
[2025-02-17] MEDS: DESYREL 200 MG PO (21:49)
[2025-02-17] MEDS: CYANOCOBALAMIN 1000 MCG IM (23:17)
[2025-02-18 03:00] VITALS: BP 146/70
[2025-02-18 06:02] LABS: Hematocrit 34.0 % (37.0-47.0); Hemoglobin 10.1 g/dL (12.0-16.0); Mean Corp Hgb Conc. 29.7 g/dL (33.0-37.0); Mean Corpuscular Volume 101.8 fL (81.0-99.0); Platelet Count 255 10^3/uL (130-400); Red Cell Dist. Width 16.4 % (11.5-14.5)
[2025-02-18 06:42] LABS: Blood Urea Nitrogen 14 mg/dl (7-17); Calcium 8.2 mg/dl (8.4-10.2); Carbon Dioxide 29 mmol/L (22-30); Chloride 112 mmol/L (98-107); Estimated Creatinine Clearance 57 ml/min; Glucose 87 mg/dl (70-99); Magnesium 1.8 mg/dl (1.6-2.3); Potassium 3.8 mmol/L (3.5-5.1); Sodium 135 mmol/L (135-145); eGFR > 60.00
[2025-02-18 08:08] VITALS: BP 129/68
[2025-02-18] MEDS: COZAAR 25 MG PO ×2 (09:41→20:04)
[2025-02-18] MEDS: EFFEXOR XR 150 MG PO ×2 (09:41→20:03)
[2025-02-18] MEDS: DESENEX/MITRAZOL/ZEASORB 1 APPLIC TOPICAL ×2 (09:42→20:05)
[2025-02-18] MEDS: PROTONIX 40 MG PO (09:42)
[2025-02-18] MEDS: LIPITOR 40 MG PO (09:42)
[2025-02-18] MEDS: VALIUM 10 MG PO ×2 (09:42→20:04)
[2025-02-18] MEDS: TYLENOL 650 MG PO (09:49)
--- NOTE | 2025-02-18 10:20 | W.PN.HOSP.TC ---
Addendum entered and electronically signed by Taty Irizarry MD 02/18/25 11:03:
Attending�addendum:
I saw and evaluated the patient. I reviewed the resident�s note and agree with findings and plan as documented in the resident�s note.��patient seen and examined at bedside, denies any chest pain or shortness of breath, complaining of mild lower
abdominal pain, no nausea, no vomiting, no diarrhea or constipation.
Physical�exam:
GENERAL : Patient is awake, alert, oriented x3
HEENT: Nonicteric sclerae, PERRLA, EOMI. Oropharynx clear. Moist mucous membranes. Conjunctivae appear well perfused.
CHEST: Chest wall is nontender.
HEART: Regular rate and rhythm without murmurs.
LUNGS: Clear to auscultation bilaterally.
ABDOMEN: Soft, positive bowel sounds, slightly lower abdominal tender, no organomegaly.
RECTAL: Deferred.
MUSCLES/EXTREMITIES: No abnormal range of motion, no swelling.SKIN: No rash, no excessive bruising, petechiae, or purpura.
NEUROLOGIC: Cranial nerves II-XII intact without motor/sensory deficit.
�
Assessment/plan:
Chronic diarrhea.
Added cholestyramine.
Obtain GI consult
UTI.
Pending culture
Status post fall.
Physical therapy recommending home PT
CODE STATUS: Full code
DVT prophylaxis: Lovenox
Disposition: Discharge home with home PT after seen by GI/urine culture
�
Total time spent on today�s encounter was 51 minutes which included time spent in counseling the patient/family regarding diagnosis and treatment plan as listed above, goals of care, and symptom management. Case was discussed with nursing staff,
specialists, and care coordinators/case management. All labs and imaging personally reviewed by me. Remainder the time spent in detailed review of previous records, lab data, imaging, and other medical provider documentation.
Original Note:
Today's Communication/Plan
-
GI consult
Cholestyramine
Continue ABX
Urine culture pending
Assessment / Plan
Assessment / Plan
Ms. Jena Cervantes is a 74 woman with hx prior alcohol abuse now sober, essential HTN, HLD, anxiety/depression, GERD status post recent left hip replacement 12/25/[address] Penn, presents to the ER after she woke up on the ground unsure how she
got there.
#UTI
UA positive
Culture pending
- IV Ceftriaxone, follow up urine culture
#Pre-Syncope versus Fall
#Ambulatory Dysfunction/Weakness
Recent left hip replacement 12/25/24
hx unclear may have fallen out of bed while sleeping v syncope.
orthostatics in ER negative
S/p IVF 1L overnight
CT head normal, CT spine no fracture, hip x-ray no fracture knee x-ray no fracture thoracic x-ray no fracture
May be related to diarrhea versus UTI
#Chronic diarrhea
History of 6 months of chronic diarrhea
Goes through 2 boxes of Imodium weekly
Distant history of chronic diarrhea
No OP GI
Hold Imodium for now
Previous EGD September 2024, mild stenosis with web, dilation performed, biopsy with reactive gastropathy negative H. pylori
- check stool studies
- C. Diff negative
- Norovirus negative
- Salmonella Campylobacter Shiga toxin pending
- Stool culture pending
- Continue probiotic
- Cholestyramine 4 g p.o. daily
GI consult appreciate recs
#Macrocytic anemia
Low B12 levels
Possibly decreased absorption due to GI issues
- B12 IM
- Intrinsic factor antibody pending
#Mild troponin Elevation
suspect non-ischemic myocardial injury secondary to dehydration
Troponin flat
EKG normal sinus rhythm, nonspecific T wave abnormality
#Anxiety/Depression
- Diazepam BID
- Continue trazodone
- Continue venlafaxine
#GERD
- PPI 40 mg p.o.
- pepcid PRN
#Essential HTN
- continue Losartan
#HLD
- Continue statin
#Tanika breast
Topical miconazole twice daily
DVT PPx Lovenox subQ
CODE STATUS: FULL CODE
Dispo: Home health
Anticipated Discharge: Within 24 hours
Subjective/Interval History
-
Saw patient at bedside. She reports this is her second fall in the past week and out of the fall on Saturday. Reports that she was down on the floor on Saturday for an extended period of time. Does not remember events leading up to fall. Also
reports being on diazepam and trazodone for over 40 years. Patient also endorses loose stools for greater then 6 months with weight loss, no fevers or chills, some night sweats. And previous history of chronic diarrhea. Patient uses Imodium to
help control diarrhea, without much relief. Goes through 2 boxes of Imodium a week. Has also endorsed vomiting in the past week and feeling like she had flulike symptoms. Vomiting has gone away but still has nausea. Also reports abdominal pain
and cramping in the lower abdomen prior to defecation, reports no bloody or black stools. Did report 1 episode of a speck of blood recently. Also reports history of esophageal dilation here at [place] last dilation September 2024. Patient does not
remember if she has had a colonoscopy. Date of Service: February 18, 2025
Objective Data
-
Labs:
Laboratory Results
02/18/25
05:32
WBC 6.5
Hgb 10.1 L D
Hct 34.0 L
Plt Count 255 D
Sodium 135
Potassium 3.8
Chloride 112 H
Carbon Dioxide 29
BUN 14
Creatinine 0.7
Glucose 87
Calcium 8.2 L
Vital Signs:
Vital Signs
Temp Pulse Resp BP Pulse Ox
98.1 F 90 16 129/68 96
02/18/25 08:08 02/18/25 09:41 02/18/25 08:08 02/18/25 09:41 02/18/25 08:08
I&O
02/17/25 02/18/25 02/19/25
06:59 06:59 06:59
Intake Total 1090 / 1090
Balance 1090 / 1090
Review of Systems
-
History Source: Patient
Constitutional: Reports Weight Loss and Night Sweats; Denies Fever
EENT: Denies Runny Nose
Respiratory: Denies Cough or Trouble Breathing
Cardiac: Denies Chest Pain or Palpitations
Abdomen/GI: Reports Abdominal Pain, Nausea, Vomiting, Diarrhea and Indigestion; Denies Constipated, Bloody Stools or Black Stools
Genitourinary: Reports Frequency; Denies Dysuria
Musculoskeletal: Reports Joint Pain (Neck pain, knee pain)
Skin: Denies Rash
Neuro: Denies Dizzy, Headache or Weakness
Endocrine: Reports Polydipsia and Excessive Thirst
Physical Exam
-
General: Well Developed, Well Nourished, No Apparent Distress and Comfortable; Negative Respiratory Distress or Fever
HEENT: Normocephalic and Atraumatic
Respiratory: Clear to Auscultation and Non Labored Respirations; Negative Wheezes or Crackles
Cardiac: Regular Rhythm and S1/S2; Negative Murmur
GI: Soft, Nondistended, Normal Bowel Sounds and Tender (Right lower quadrant)
Musculoskeletal: No Clubbing and No Edema
Skin: Warm and Dry; Negative Rash
Neuro: Awake and Alert
--- NOTE | 2025-02-18 10:51 | CON.GI ---
Addendum entered and electronically signed by Yadi Jordan Do, MD 02/18/25 17:10:
I saw and examined the patient.
The VASC TECH's note was reviewed and I agree with the note.
Comment: Jena is a 74yo W wit hh/o COPD and HTN who presents for weakness and falls. GI consulted for chronic dysphagia. She is known to Dr Cabrera with EGD September 2024 with dilation of cervical web and GEJ stricture. She had improvement but
increasing solid food dysphagia. She also has erratic bowel habits reliant on immodium but then at times constipation with cramping relieved with defecation. Vitals stable NTTP NABS pale appearing. Labs reviewed.
Impression
- UTI
- Weakness recent falls
- Chronic dysphagia with h/o GEJ and cervical web s/p dilation
- Erratic bowel habits
- Anxiety
- partial paralyzed vocal cords
Recommendations
- C/w lactose free diet
- Observed to eat 60% of lunch
- C/w PPI
- Chew slowly
- Stop immodium
- Start fiber daily basis
- Recommend EGD with Dr Cabrera OP for follow up interval dilation as needed. Office will reach out to set her up.
GI will sign off please call for ?
Original Note:
Consultation
-
Date/Time Consultation Requested:
Date/Time Consultation Performed: 02/18/25 1050
Requesting Provider: Melissa Sethi MD
Performing Provider: CARLOS Waldrop, Yadi Mayo MD
Reason for Consultation: dysphagia, diarrhea, constipation
Medical History
Chief Complaint / HPI
Chief Complaint: s/p fall, constipation, diarrhea
History of Present Illness:
Pt is a 74yo with hx skin CA, COPD, HTN, hyperlipidemia, anxiety/depression, dysphagia, PNA, insomnia, partial paralyzed vocal cord with ER admission with fall and confusion with concern for UTI. On admission she admits to anorexia, vomiting with
decreased PO intakes. In review of record pt was seen in GI office with Dr. Cabrera back in September for dysphagia. Prior to visit had esophagram with noted cervical esophageal web and GE junction stricture. She completed EGD 09/24/24 with dilation.
She admits improvement in symptom but slow narrowing over time. She will still get occasional dysphagia with liquid and solids but was able to eat eggs and gallegos for breakfast this am. She also complaints of intermittent diarrhea and constipation
with bloating. She also admits to taking 3 Imodium nightly for last 2 years.
Pt otherwise admits to vomiting food at time but in review episode were prior to dilation she otherwise denies odynophagia, GERD, abdominal pain, blood or black in stools.
Past Medical History
Past Medical History: Cancer (skin CA), COPD, HTN, Hypercholesterolemia, Psychiatric (anxiety/depression ) and Other (UTI, dysphagia with prior esophageal web and stenosis with dilation 09/2024, ? colon polyps, PNA, insomnia, partial paralyzed vocal
cord)
Social History
Tobacco: Non-Smoker
Alcohol: None
Drug: None
Living: Alone
Employment: Retired
Family History
Family History: Other (no family hx GI issues )
Allergies / Home Medications
Allergy/AdvReac Type Severity Reaction Status Date / Time
pollen extracts Allergy Itching Verified 02/17/25 10:11
causes
congestion
prednisone Allergy anxiety Verified 02/17/25 10:11
�Medication �Instructions �Recorded
diazepam 10 mg tablet 10 mg PO BID ANXIETY 09/24/24
trazodone 100 mg tablet 200 mg PO HS Mental Health/Anxiety 09/24/24
atorvastatin 40 mg tablet 40 mg PO DAILY High Cholesterol 10/13/24
omeprazole 40 mg capsule,delayed 40 mg PO DAILY GERD 10/13/24
release
venlafaxine 150 mg 150 mg PO BID Mental Health/Anxiety 10/13/24
capsule,extended release 24 hr
famotidine 20 mg tablet 20 mg PO BIDPRN PRN Heartburn 02/17/25
losartan 25 mg tablet 25 mg PO BID Blood Pressure 02/17/25
Review of Systems
-
History Source: Patient
Constitutional: Reports Weight Loss (few lbs) and Fatigue
EENT: Reports No Symptoms
Respiratory: Reports No Symptoms
Abdomen/GI: Reports Diarrhea, Constipated and Other (bloating, dysphagia at times )
: Reports Frequency
Musculoskeletal: Reports Other (falls prior to admission)
Skin: Reports No Symptoms
Neurological: Reports No Symptoms and Weakness
Endocrine: Reports No Symptoms
Hematologic/Lymphatic: Reports No Symptoms
Vital Signs
Temp Pulse Resp BP Pulse Ox
98.1 F 90 16 129/68 96
02/18/25 08:08 02/18/25 09:41 02/18/25 08:08 02/18/25 09:41 02/18/25 08:08
Physical Exam
Exam
General: Well Developed, Well Nourished and No Apparent Distress
HEENT: Normocephalic, Anicteric and Moist Mucous Membranes
Respiratory: Clear
Cardiac: Regular Rhythm
GI: Soft, Non Tender and Distended (mild )
Musculoskeletal: No Clubbing and No Cyanosis
Skin: Warm and Dry
Neuro: Awake, Alert and Other (forgetful at times )
Psych: Confused (to some dates and times but conversant and appropriate )
Results
WBC 6.5 10^3/uL (4.8-10.8) 02/18/25 05:32
Hgb 10.1 g/dL (12.0-16.0) L D 02/18/25 05:32
Hct 34.0 % (37.0-47.0) L 02/18/25 05:32
MCV 101.8 fL (81.0-99.0) H 02/18/25 05:32
Plt Count 255 10^3/uL (130-400) D 02/18/25 05:32
Absolute Neuts (auto) 8.6 10^3/uL (1.4-6.5) H 02/17/25 10:36
Sodium 135 mmol/L (135-145) 02/18/25 05:32
Potassium 3.8 mmol/L (3.5-5.1) 02/18/25 05:32
Chloride 112 mmol/L (98-107) H 02/18/25 05:32
Carbon Dioxide 29 mmol/L (22-30) 02/18/25 05:32
BUN 14 mg/dl (7-17) 02/18/25 05:32
Creatinine 0.7 mg/dL (0.6-1.0) 02/18/25 05:32
Calcium 8.2 mg/dl (8.4-10.2) L 02/18/25 05:32
Total Bilirubin 0.7 mg/dl (0.2-1.3) 02/17/25 10:36
AST 20 U/L (14-36) 02/17/25 10:36
ALT 13 U/L (0-35) 02/17/25 10:36
Alkaline Phosphatase 89 U/L (38-126) 02/17/25 10:36
Diagnostic Image Results:
09/01/24 esophagram
Small thin esophageal web along the ventral margin of the proximal cervical esophagus. Estimated luminal diameter reduction of less than 50%.
Intermittent low level tertiary contractions of the thoracic esophagus.
Mild stricture formation suggested at the gastroesophageal junction, with mild delay in passage of a 13 mm barium tablet.
No hiatal hernia. No radiographically demonstrable reflux.
09/24/24 [place]- EGD - Web in the upper third of the esophagus. Dilated. Savary dilation no resistance
- Esophageal stenosis. Dilated.
- Gastritis. Biopsied.
- Normal examined duodenum.
bx neg h pylori, reactive gastropathy
Colonoscopy: ? 3 years ago with polyps
Assessment / Plan
-
Pt is a 74yo with hx skin CA, COPD, HTN, hyperlipidemia, anxiety/depression, dysphagia, PNA, insomnia, partial paralyzed vocal cord with ER admission with fall and confusion with concern for UTI. On admission she admits to anorexia, vomiting with
decreased PO intakes. In review of record pt was seen in GI office with Dr. Cabrera back in September for dysphagia. Prior to visit had esophagram with noted cervical esophageal web and GE junction stricture. She completed EGD 09/24/24 with dilation.
She admits improvement in symptom but slow narrowing over time. She will still get occasional dysphagia with liquid and solids but was able to eat eggs and gallegos for breakfast daily. She also complaints of intermittent diarrhea and constipation
with bloating. She also admits to taking 3 Imodium nightly for last 2 years. No NSAID or anticoagulation use.
-dysphagia s/p dilation 09/2024 with slow increase of symptoms
-alternating diarrhea and constipation with chronic Imodium use
-UTI with confusion on admission
-fall prior to admission
-macrocytic anemia with low B12
other med issues:
skin CA, COPD, HTN, hyperlipidemia, anxiety/depression, dysphagia, PNA, insomnia, partial paralyzed vocal cord
PLAN:
etiology of dysphagia related to know stricture - currently tolerating breakfast continue to monitor may need eventual repeat EGD outpatient for repeat dilation
monitor for any recurrent vomiting or food intolerance during admission
cont PPI daily
pt with alternating diarrhea and constipation -- with UTI and chronic Imodium use would be concerned for overflow
she admits to small soft stool today
check abdominal X ray for stool burden
questran ordered by hospitalist team -- reviewed with nursing to get X ray first then decide on treatment course
hold Imodium
cont B12 treatment per medical team
cont abx for UTI
OP follow with Dr. Daniels
-
-
Thank you for consultation and allowing me to participate in the patient's care. Please call the travel sales consultant GI physician during the after hours with any questions or concerns.
[2025-02-18 11:02] VITALS: BMI 24.6
[2025-02-18] MEDS: VISBIOME 2 CAP PO (11:22)
[2025-02-18 11:30] VITALS: BP 118/72
--- NOTE | 2025-02-18 12:32 | CM ---
Alert awake oriented patient who lives alone in an apartment with no steps to enter . She is independent in ADLs. She does not drive. She has 2 supportive dgts.Pt has hx of [facility] and [facility].She uses a walker. She requested resumption of
[facility] explained to pt she declined to sign [facility] letter.
Pharmacy [facility]
PCP [facility]
PLAN Resume [facility] fax [phone]
[2025-02-18 15:06] VITALS: BP 141/62
[2025-02-18] MEDS: METAMUCIL, KONSYL 1 PACKET PO (17:08)
[2025-02-18] MEDS: ROCEPHIN 1000 MG IV (17:09)
[2025-02-18] MEDS: STERILE WATER FOR INJECTION 10 ML IV (17:09)
[2025-02-18] MEDS: LOVENOX 40 MG SC (17:11)
[2025-02-18] MEDS: CYANOCOBALAMIN 1000 MCG IM (17:12)
--- NOTE | 2025-02-18 17:41 | PTCARENOTE ---
Assumed care of pt from previous nurse. Tylenol provided for headache with positive effect. pt call dee is within reach, pt rings herb. still feels dizzy at times. will cont to monitor.
[2025-02-18 19:00] VITALS: BP 152/74
[2025-02-18] MEDS: DESYREL 200 MG PO (21:00)
[2025-02-18 23:00] VITALS: BP 130/71
[2025-02-19 03:00] VITALS: BP 157/84
[2025-02-19 06:12] LABS: Hematocrit 34.6 % (37.0-47.0); Hemoglobin 10.6 g/dL (12.0-16.0); Mean Corp Hgb Conc. 30.6 g/dL (33.0-37.0); Mean Corpuscular Volume 100.9 fL (81.0-99.0); Platelet Count 269 10^3/uL (130-400); Red Cell Dist. Width 16.0 % (11.5-14.5)
[2025-02-19] MEDS: TYLENOL 650 MG PO (06:28)
[2025-02-19 06:39] LABS: Blood Urea Nitrogen 10 mg/dl (7-17); Calcium 8.5 mg/dl (8.4-10.2); Carbon Dioxide 29 mmol/L (22-30); Chloride 110 mmol/L (98-107); Estimated Creatinine Clearance 57 ml/min; Glucose 83 mg/dl (70-99); Potassium 3.6 mmol/L (3.5-5.1); Sodium 139 mmol/L (135-145); eGFR > 60.00
[2025-02-19 07:00] VITALS: BP 122/91
[2025-02-19] MEDS: METAMUCIL, KONSYL 1 PACKET PO (07:56)
[2025-02-19] MEDS: VALIUM 10 MG PO (07:56)
[2025-02-19] MEDS: COZAAR 25 MG PO (07:56)
[2025-02-19] MEDS: EFFEXOR XR 150 MG PO (07:56)
[2025-02-19] MEDS: PROTONIX 40 MG PO (07:56)
[2025-02-19] MEDS: LIPITOR 40 MG PO (07:56)
[2025-02-19] MEDS: VISBIOME 2 CAP PO (07:56)
[2025-02-19] MEDS: DESENEX/MITRAZOL/ZEASORB 1 APPLIC TOPICAL (07:58)
[2025-02-19] MEDS: TORADOL 15 MG IV (09:01)
--- NOTE | 2025-02-19 09:06 | W.PN.HOSP.TC ---
Addendum entered and electronically signed by Taty Irizarry MD 02/19/25 11:43:
Attending�addendum:
I saw and evaluated the patient. I reviewed the resident�s note and agree with findings and plan as documented in the resident�s note.��patient seen and examined at bedside, denies any chest pain or shortness of breath, complaining left groin pain,
no nausea, no vomiting, no diarrhea or constipation.
Physical�exam:
GENERAL : Patient is awake, alert, oriented x3
HEENT: Nonicteric sclerae, PERRLA, EOMI. Oropharynx clear. Moist mucous membranes. Conjunctivae appear well perfused.
CHEST: Chest wall is nontender.
HEART: Regular rate and rhythm without murmurs.
LUNGS: Clear to auscultation bilaterally.
ABDOMEN: Soft, positive bowel sounds, slightly lower abdominal tender, no organomegaly.
RECTAL: Deferred.
MUSCLES/EXTREMITIES: No abnormal range of motion, no swelling.SKIN: No rash, no excessive bruising, petechiae, or purpura.
NEUROLOGIC: Cranial nerves II-XII intact without motor/sensory deficit.
�
Assessment/plan:
Chronic diarrhea.
Diarrhea improved.
Appreciate GI input
UTI.
Pansensitive Klebsiella
Status post fall.
Physical therapy recommending home PT
CODE STATUS: Full code
DVT prophylaxis: Lovenox
Disposition: Discharge home with home PT.
�
Total time spent on today�s encounter was 51 minutes which included time spent in counseling the patient/family regarding diagnosis and treatment plan as listed above, goals of care, and symptom management. Case was discussed with nursing staff,
specialists, and care coordinators/case management. All labs and imaging personally reviewed by me. Remainder the time spent in detailed review of previous records, lab data, imaging, and other medical provider documentation.
Original Note:
Today's Communication/Plan
-
Culture and sensitivity returned
Transition to p.o. antibiotic
Dispo planning
Assessment / Plan
Assessment / Plan
Ms. Jena Cervantes is a 74 woman with hx prior alcohol abuse now sober, essential HTN, HLD, anxiety/depression, GERD status post recent left hip replacement 12/25/[address] Penn, presents to the ER after she woke up on the ground unsure how she
got there. This was her second such incidents during the week prior to presentation. Patient also reported chronic diarrhea of 6 months prior to coming in with abdominal pain prior to defecation and heavy Imodium use. In the ER patient was AFVSS,
with elevated troponin that was trended and flatlined, unremarkable EKG, patient was assessed and CT head was normal CT spine showed no fracture hip x-ray showed no fracture knee x-ray showed no fractures thoracic x-ray showed no fractures. UA was
performed positive for UTI and patient was started on IV Rocephin and admitted to the hospital for further evaluation. Stool studies were ordered, C. difficile negative, norovirus negative. GI was consulted for chronic diarrhea and history of
esophageal stenosis. GI recommended stopping Imodium starting fiber and outpatient follow-up for dysphagia. During the hospital stay patient's diarrhea improved. Patient was also found to be macrocytic anemic with low B12 levels which were
replenished during the hospital stay. Urine culture came back positive for Klebsiella pneumonia and was pansensitive patient was transition off of IV antibiotics to p.o. antibiotics.
#UTI
UA positive
Culture grew pansensitive Klebsiella pneumonia
- IV Ceftriaxone, follow up urine culture
- DC on cefdinir 300 mg twice daily 5 days
#Pre-Syncope versus Fall
#Ambulatory Dysfunction/Weakness
#Left hip pain
Recent left hip replacement 12/25/24
hx unclear may have fallen out of bed while sleeping v syncope.
orthostatics in ER negative
S/p IVF 1L overnight
CT head normal, CT spine no fracture, hip x-ray no fracture knee x-ray no fracture thoracic x-ray no fracture
May be related to diarrhea versus UTI
- Toradol for pain control
#Chronic diarrhea
History of 6 months of chronic diarrhea
Goes through 2 boxes of Imodium weekly
Distant history of chronic diarrhea
No OP GI
Hold Imodium for now
Previous EGD September 2024, mild stenosis with web, dilation performed, biopsy with reactive gastropathy negative H. pylori
- check stool studies
- C. Diff negative
- Norovirus negative
- Salmonella Campylobacter Shiga toxin pending
- Stool culture pending
- Continue probiotic
GI consult appreciate recs
- Stop Imodium
- Psyllium fiber
- Outpatient follow-up
#Macrocytic anemia
Low B12 levels
Possibly decreased absorption due to GI issues
- B12 IM
- Intrinsic factor antibody pending
#Mild troponin Elevation
suspect non-ischemic myocardial injury secondary to dehydration
Troponin flat
EKG normal sinus rhythm, nonspecific T wave abnormality
#Anxiety/Depression
- Diazepam BID
- Continue trazodone
- Continue venlafaxine
#GERD
- PPI 40 mg p.o.
- pepcid PRN
#Essential HTN
- continue Losartan
#HLD
- Continue statin
#Tanika breast
Topical miconazole twice daily
DVT PPx Lovenox subQ
CODE STATUS: FULL CODE
Dispo: Home health
Anticipated Discharge: Today
Subjective/Interval History
-
Patient was seen at bedside. Reports that she was up peeing a lot last night with no burning, reported less bowel movement yesterday. Patient also reported left groin pain not alleviated by Tylenol. Feels like similar groin pain she has had with
hip pain. Otherwise no acute complaints. Date of Service: February 19, 2025
Objective Data
-
Labs:
Laboratory Results
02/19/25
05:43
WBC 7.5
Hgb 10.6 L
Hct 34.6 L
Plt Count 269
Sodium 139
Potassium 3.6
Chloride 110 H
Carbon Dioxide 29
BUN 10
Creatinine 0.7
Glucose 83
Calcium 8.5
Vital Signs:
Vital Signs
Temp Pulse Resp BP Pulse Ox
98.1 F 78 16 122/91 97
02/19/25 07:00 02/19/25 07:56 02/19/25 07:00 02/19/25 07:56 02/19/25 07:00
I&O
02/18/25 02/19/25 02/20/25
06:59 06:59 06:59
Intake Total 1090 / 1090
Balance 1090 / 1090
Review of Systems
-
History Source: Patient
Constitutional: Reports Sleep Disturbance; Denies Fever or Chills
EENT: Reports Runny Nose
Respiratory: Denies Cough or Trouble Breathing
Cardiac: Denies Chest Pain or Palpitations
Abdomen/GI: Denies Abdominal Pain, Nausea, Vomiting, Diarrhea or Constipated
Genitourinary: Reports Frequency; Denies Dysuria
Musculoskeletal: Reports Joint Pain (Left hip groin pain ) and Muscle Pain
Neuro: Denies Headache
Physical Exam
-
General: Well Developed, Well Nourished, No Apparent Distress and Comfortable; Negative Fever
HEENT: Normocephalic and Atraumatic
Respiratory: Clear to Auscultation and Non Labored Respirations; Negative Wheezes or Crackles
Cardiac: Regular Rhythm and S1/S2; Negative Murmur
GI: Soft, Nontender, Nondistended and Normal Bowel Sounds
Musculoskeletal: No Clubbing and No Edema
Skin: Warm and Dry
Neuro: Awake and Alert
[2025-02-19 11:00] VITALS: BP 160/94
--- NOTE | 2025-02-19 11:32 | W.DCSUMMARY ---
Addendum entered and electronically signed by Taty Irizarry MD 02/19/25 11:46:
Attending�addendum:
I saw and evaluated the patient. I reviewed the resident�s note and agree with findings and plan as documented in the resident�s note.��patient seen and examined at bedside, denies any chest pain or shortness of breath, complaining left groin pain,
no nausea, no vomiting, no diarrhea or constipation.
Physical�exam:
GENERAL : Patient is awake, alert, oriented x3
HEENT: Nonicteric sclerae, PERRLA, EOMI. Oropharynx clear. Moist mucous membranes. Conjunctivae appear well perfused.
CHEST: Chest wall is nontender.
HEART: Regular rate and rhythm without murmurs.
LUNGS: Clear to auscultation bilaterally.
ABDOMEN: Soft, positive bowel sounds, slightly lower abdominal tender, no organomegaly.
RECTAL: Deferred.
MUSCLES/EXTREMITIES: No abnormal range of motion, no swelling.SKIN: No rash, no excessive bruising, petechiae, or purpura.
NEUROLOGIC: Cranial nerves II-XII intact without motor/sensory deficit.
�
Assessment/plan:
Chronic diarrhea.
Diarrhea improved.
Appreciate GI input
UTI.
Pansensitive Klebsiella
Status post fall.
Physical therapy recommending home PT
CODE STATUS: Full code
DVT prophylaxis: Lovenox
Disposition: Discharge home with home PT.
�
Total time spent on today�s encounter was 40 minutes which included time spent in counseling the patient/family regarding diagnosis and treatment plan as listed above, goals of care, and symptom management. Case was discussed with nursing staff,
specialists, and care coordinators/case management. All labs and imaging personally reviewed by me. Remainder the time spent in detailed review of previous records, lab data, imaging, and other medical provider documentation.
Original Note:
Documented by User: Yadi Sethi MD, Resident 02/19/25 11:42
Discharge Summary
Discharge Data
Date of Admission: 02/17/25
Date of Discharge: 02/19/25
-
Pending Results: No
Hospital Course
Discharging Physician :
Dr. Irizarry
Dr. Sethi
Disposition :
Home with home health
Primary care physician :
None
Principal Discharge diagnosis :
Acute UTI
Chronic Discharge diagnosis :
hx skin CA
COPD
Essential HTN
hyperlipidemia
anxiety/depression
dysphagia
insomnia
partial paralyzed vocal cord
Hospital Course :
Ms. 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 Penn, presents to the ER
after she woke up on the ground unsure how she got there. This was her second such incident during the week prior to presentation. Patient also reported chronic diarrhea of 6 months prior to coming in with abdominal pain prior to defecation and
heavy Imodium use. In the ER patient was AFVSS, with elevated troponin that was trended and flatlined, unremarkable EKG, patient was assessed and CT head was normal CT spine showed no fracture hip x-ray showed no fracture knee x-ray showed no
fractures thoracic x-ray showed no fractures. UA was positive for UTI and patient was started on IV Rocephin and admitted to the hospital for further evaluation. Stool studies were ordered, C. difficile negative, norovirus negative. GI was
consulted for chronic diarrhea and history of esophageal stenosis. GI ordered abdominal x-ray which showed low colonic stool burden, and recommended stopping Imodium starting fiber and outpatient follow-up for dysphagia. During the hospital stay
patient's diarrhea improved. Patient was also found to be macrocytic anemic with low B12 levels which were replenished during the hospital stay. Urine culture came back positive for Klebsiella pneumonia, pansensitive, and patient was transitioned
off of IV antibiotics to p.o. antibiotics. Patient also had groin pain that was controlled with ketorolac. Patient was evaluated by PT who recommended home health and case management set up VN with [facility]. At discharge patient was AFVSS.
Important imaging findings :
Cervical spine CT 02/17/2025:
IMPRESSION:
Degenerative changes.
No findings to suggest recent cervical spine fracture.
Suspected centrilobular type emphysema within the included tips of the lung apices.
02/17/[address]:
IMPRESSION:
No acute intracranial abnormalities.
Findings again seen compatible with diffuse cortical atrophy with nonspecific white matter changes as described above.
02/17/2025 hip x-ray:
FINDINGS and IMPRESSION:
Left hip arthroplasty is seen in anatomic position, without dislocation.
There is no recent cortical fracture.
Degenerative changes are again noted.
02/17/2025 knee x-ray:
FINDINGS and IMPRESSION:
Bones: There is no recent cortical fracture or dislocation. Osseous degenerative changes are noted.
Soft tissue: Some femorotibial soft tissue calcifications are seen at least in part could represent some chondrocalcinosis. There is no finding to suggest suprapatellar effusion.
02/17/2025 thoracic spine x-ray:
FINDINGS and IMPRESSION:
Osseous alignment of the thoracic spine appears intact.
There is no finding to suggest thoracic vertebral compression fracture or displacement of the paravertebral lines.
Osseous degenerative changes are noted.
02/18/2025 abdominal x-ray:
IMPRESSION:
Minimal colonic stool.
Nonobstructive intestinal bowel gas pattern.
Procedure findings :
02/17/2025 ECG:
NORMAL SINUS RHYTHM
NONSPECIFIC T WAVE ABNORMALITY
NO PREVIOUS ECGS AVAILABLE
Discharge Plan
-
Patient Disposition: Home (Routine Discharge)
Discharge Diagnosis/Procedures: Acute UTI
Condition: Good
Diet: Other diet
Additional Diets: Low lactose
Activity: As tolerated
Driving Restrictions: As prior to admission
Bathing Restrictions: None
Other Services: VN
Referrals:
Erik Cabrera MD [Active, Gastroenterology]
Referral Note: call to arrange 3-4 week follow up to discuss repeat EGD with dilation
UNKNOWN - PT DOES,NOT KNOW [Family Provider]
Additional Discharge Medication Instructions: Take ketorolac with food, do not take for more than 5 days at a time
Prescriptions:
New
Metamucil Fiber (aspartame) 3.4 gram Powder In Packet
1 packet PO DAILY Qty: 30 0RF
ketorolac 10 mg tablet
10 mg PO Q8H PRN (Reason: Pain) Qty: 30 0RF
Rx Instructions:
maximum total duration of 5 days from all oral, intranasal, or parenteral formulations
cefdinir 300 mg capsule
300 mg PO BID Qty: 6 0RF
Continued
diazepam 10 mg Tablet
10 mg PO BID
trazodone 100 mg Tablet
200 mg PO HS
atorvastatin 40 mg Tablet
40 mg PO DAILY
venlafaxine 150 mg Capsule,Extended Release 24hr
150 mg PO BID
omeprazole 40 mg Capsule,Delayed Release(Dr/Ec)
40 mg PO DAILY
famotidine 20 mg tablet
20 mg PO BIDPRN PRN (Reason: Heartburn)
losartan 25 mg Tablet
25 mg PO BID
Discharge Orders:
Discharge Patient (As Directed); Ordered 02/19/25
Ordered By: Yadi Sethi
Discharge Date and Time
Print Language: BAHRAINI

Documented by User: Taty Irizarry MD 02/19/25 11:44
Discharge Summary
Discharge Data
Date of Admission: 02/17/25
Date of Discharge: 02/19/25
Discharge Plan
-
Patient Disposition: Home (Routine Discharge)
Discharge Diagnosis/Procedures: Acute UTI
Condition: Good
Diet: Other diet
Additional Diets: Low lactose
Activity: As tolerated
Driving Restrictions: As prior to admission
Bathing Restrictions: None
Other Services: VN
Referrals:
Erik Cabrera MD [Active, Gastroenterology]
Referral Note: call to arrange 3-4 week follow up to discuss repeat EGD with dilation
UNKNOWN - PT DOES,NOT KNOW [Family Provider]
Additional Discharge Medication Instructions: Take ketorolac with food, do not take for more than 5 days at a time
Prescriptions:
New
Metamucil Fiber (aspartame) 3.4 gram Powder In Packet
1 packet PO DAILY Qty: 30 0RF
ketorolac 10 mg tablet
10 mg PO Q8H PRN (Reason: Pain) Qty: 30 0RF
Rx Instructions:
maximum total duration of 5 days from all oral, intranasal, or parenteral formulations
cefdinir 300 mg capsule
300 mg PO BID Qty: 6 0RF
Continued
diazepam 10 mg Tablet
10 mg PO BID
trazodone 100 mg Tablet
200 mg PO HS
atorvastatin 40 mg Tablet
40 mg PO DAILY
venlafaxine 150 mg Capsule,Extended Release 24hr
150 mg PO BID
omeprazole 40 mg Capsule,Delayed Release(Dr/Ec)
40 mg PO DAILY
famotidine 20 mg tablet
20 mg PO BIDPRN PRN (Reason: Heartburn)
losartan 25 mg Tablet
25 mg PO BID
Discharge Orders:
Discharge Patient (As Directed); Ordered 02/19/25
Ordered By: Yadi Sethi
Discharge Date and Time
Print Language: BAHRAINI
--- NOTE | 2025-02-19 14:54 | CM ---
Pt is cleared for discharge today.
PLAN Resume [facility] fax [phone]
[2025-02-19 15:00] VITALS: BP 148/88
[2025-02-20 15:16] LABS: Intrinsic Factor Blocking Ab Negative (Negative)
== END 2025-02-19 16:20 | disposition home or self-care (01) ==
LOC: 3 WEST ACU 17:25
PROVIDERS: Physician Assistant; Student in an Organized Health Care Education/Training Program; ADMITTING PHYSICIAN Student in an Organized Health Care Education/Training Program; ATTENDING PHYSICIAN General Practice; CONSULT PHYSICIAN Internal Medicine Gastroenterology; EMERGENCY PHYSICIAN Emergency Medicine
DX: N39.0 Urinary tract infection, site not specified (principal); R13.10 Dysphagia, unspecified; F41.9 Anxiety disorder, unspecified; J38.00 Paralysis of vocal cords and larynx, unspecified; S09.90XA Unspecified injury of head, initial encounter; W19.XXXA Unspecified fall, initial encounter; K52.9 Noninfective gastroenteritis and colitis, unspecified; D53.9 Nutritional anemia, unspecified; R26.2 Difficulty in walking, not elsewhere classified; I10 Essential (primary) hypertension; K21.9 Gastro-esophageal reflux disease without esophagitis; R79.89 Other specified abnormal findings of blood chemistry; B37.89 Other sites of candidiasis; B96.1 Klebsiella pneumoniae [K. pneumoniae] as the cause of diseases classified elsewhere; F32.A Depression, unspecified; Z17.1 Estrogen receptor negative status [ER-]; Z79.899 Other long term (current) drug therapy; Z87.891 Personal history of nicotine dependence
CPT/HCPCS: 70450; 72072; 72125; 73502; 73564; 74018; 80048; 80053; 81003; 81015; 82550; 82607; 83735; 84443; 84484; 85025; 85027; 86340; 87045; 87046; 87077; 87086; 87186; 87324; 87427; 87449; 87798; 93005; 96361; 96374; 97166; 99285; G0378